=== PATIENT | male | born 1945 | race Caucasian/White ===

== ENCOUNTER 2019-11-02 09:50 | Emergency (ER) | payer OTHER ==
[~2019-11-02] VITALS: Ht 172.7 cm; Wt 83.0 kg
[2019-11-02] MEDS ORDERED: ATORVASTATIN CA20 MG PO (13:39)
[2019-11-02] MEDS ORDERED: AMLODIPINE BESY10 MG PO (13:39)
[2019-11-02] MEDS ORDERED: SODBIC650 PO (13:39)
[2019-11-02] MEDS ORDERED: SPIRONOLACTONE25 MG PO (13:39)
[2019-11-02] MEDS ORDERED: GLIP10ER PO (13:39)
[2019-11-02] MEDS ORDERED: GABA300 PO (13:40)
[2019-11-02] MEDS ORDERED: SYNTHROID25 MCG PO (13:40)
== END 2019-11-02 14:45 | disposition home or self-care (01) ==
LOC: ER 09:50
DX: M43.8X6 Other specified deforming dorsopathies, lumbar region (principal); Z88.8 Allergy status to other drugs, medicaments and biological substances; W01.0XXA Fall on same level from slipping, tripping and stumbling without subsequent striking against object, initial encounter
CPT/HCPCS: 72100; 99284-25

== ENCOUNTER 2019-12-21 11:17 | Inpatient (IN) | payer OTHER ==
[~2019-12-21] VITALS: Ht 170.2 cm; Wt 79.5 kg
[~2019-12-21 11:17] MED LIST: AMLODIPINE BESY10 MG PO; ATORVASTATIN CA20 MG PO; GABA300 PO; GLIP10ER PO; SODBIC650 PO; SPIRONOLACTONE25 MG PO; SYNTHROID25 MCG PO
[2019-12-21 13:02] LABS: BASOPHILS ABSOLUTE AUTO 0.04 K/mm3 (0.00-0.23); BASOPHILS PERCENT AUTO 0 % (0-2); EOSINOPHILS ABSOLUTE AUTO 0.17 K/mm3 (0.00-0.68); EOSINOPHILS PERCENT AUTO 1 % (0-6); Hemoglobin 10.8 g/dL (13.5-17.5); IMMATURE GRAN ABSOLUTE AUTO 0.08 K/mm3 (0.00-0.10); IMMATURE GRAN PERCENT AUTO 1 % (0-1); LYMPHOCYTES ABSOLUTE AUTO 0.39 K/mm3 (0.84-5.20); LYMPHOCYTES PERCENT AUTO 3 % (21-46); MONOCYTES ABSOLUTE AUTO 0.89 K/mm3 (0.16-1.47); MONOCYTES PERCENT AUTO 6 % (4-13); Mean Corpuscular HGB Conc 32.7 g/dL (31.5-36.5); Mean Corpuscular Volume 92 fL (80-100); Mean Platelet Volume 11.6 fL (9.1-12.4); NEUTROPHILS ABSOLUTE AUTO 14.19 K/mm3 (1.96-9.15); NEUTROPHILS PERCENT AUTO 90 % (41-73); Platelet Count 266 K/mm3 (150-400); RDW Coefficient Variation 12.7 % (11.7-14.2); RDW Standard Deviation 42.5 fL (35.1-46.3); White Blood Cell Count 15.76 K/mm3 (4.00-11.30)
[2019-12-21 13:20] LABS: Albumin, Blood 2.5 g/dL (3.4-5.0); Albumin/Globulin Ratio 0.6 (0.8-1.8); Bilirubin, Total 0.5 mg/dL (0.1-1.0); Bun/Creatinine Ratio 10.5 (12.0-20.0); Calcium, Blood 7.9 mg/dL (8.5-10.1); Creatinine, Blood 5.99 mg/dL (0.60-1.20); Globulin, Blood 4.4 g/dL (2.2-4.0); Potassium, Blood 3.6 mmol/L (3.5-5.5); Total Protein, Blood 6.9 g/dL (6.4-8.2)
[2019-12-21 19:37] LABS: Appearance, Urine Hazy (Clear); Bilirubin, Urine Neg (Neg); Blood, Urine 3+ (Neg); Color, Urine Yellow (P-Yellow); Glucose Qualitative, Urine 2+ (Neg); Ketones, Urine Neg (Neg); Leukocyte Esterase, Urine Neg (Neg); Nitrite, Urine Neg (Neg); Protein, Urine 4+ (Neg); Urobilinogen, Urine NORM (Normal)
[2019-12-21 19:43] LABS: Amorphous Heavy (0-Heavy); Bacteria Few /hpf; Red Blood Cells, Urine 0-2 /hpf (0-2); Squamous Epithelial Cells Few /hpf (Few); White Blood Cells, Urine 0-2 /hpf (0-5)
--- NOTE | 2019-12-22 03:50 | NUR ---
SHIFT SUMMARY: PATIENT ARRIVED TO [facility] AT APPROX 2035 VIA GURNEY FROM ER. PATIENT SLIDE TRANSFER HE IS UNABLE TO AMBULATE AT THIS TIME D/T WEAKNESS. BED EXIT ALARM PLACED, ADMISSION COMPLETED AND PATIENT ORIENTED TO ROOM, CALL LIGHT AND HOSPITAL POLICIES. OPEN AREA NEAR COCCYX RECORDED AND MEPELEX PLACED, WATSON PATENT AND DRAINING TO GRAVITY. PATIENT ABLE TO SWALLOW, COMPLIANT WITH CARE. BED LOW AND LOCKED.
--- NOTE | 2019-12-22 07:25 | NUR ---
ASSUMED PATIENT CARE. PATIENT RESTING COMFORTABLY IN BED, NO SIGNS OF ACUTE DISTRESS. PATIENT ABLE TO SPEAK COMFORTABLY WITH NURSING STAFF. TM.
[2019-12-22 11:49] LABS: BASOPHILS ABSOLUTE AUTO 0.04 K/mm3 (0.00-0.23); BASOPHILS PERCENT AUTO 0 % (0-2); EOSINOPHILS ABSOLUTE AUTO 0.21 K/mm3 (0.00-0.68); EOSINOPHILS PERCENT AUTO 1 % (0-6); Hematocrit 30.7 % (37.0-53.0); Hemoglobin 9.9 g/dL (13.5-17.5); IMMATURE GRAN ABSOLUTE AUTO 0.11 K/mm3 (0.00-0.10); IMMATURE GRAN PERCENT AUTO 1 % (0-1); LYMPHOCYTES ABSOLUTE AUTO 0.53 K/mm3 (0.84-5.20); LYMPHOCYTES PERCENT AUTO 3 % (21-46); MONOCYTES ABSOLUTE AUTO 1.17 K/mm3 (0.16-1.47); MONOCYTES PERCENT AUTO 6 % (4-13); Mean Corpuscular HGB 29.6 pg (26.0-34.0); Mean Corpuscular HGB Conc 32.2 g/dL (31.5-36.5); Mean Corpuscular Volume 92 fL (80-100); Mean Platelet Volume 11.2 fL (9.1-12.4); NEUTROPHILS PERCENT AUTO 89 % (41-73); Platelet Count 279 K/mm3 (150-400); RDW Coefficient Variation 12.8 % (11.7-14.2); RDW Standard Deviation 42.5 fL (35.1-46.3); Red Blood Cell Count 3.35 M/mm3 (4.30-5.90); White Blood Cell Count 19.06 K/mm3 (4.00-11.30)
[2019-12-22 12:06] LABS: Albumin, Blood 2.3 g/dL (3.4-5.0); Anion Gap 9 mmol/L (6-16); Blood Urea Nitrogen 62 mg/dL (8-24); Bun/Creatinine Ratio 10.4 (12.0-20.0); CO2, Blood 20 mmol/L (21-32); Calcium, Blood 7.8 mg/dL (8.5-10.1); Chloride, Blood 105 mmol/L (98-108); Creatinine, Blood 5.97 mg/dL (0.60-1.20); Glomerular Filtration Rate 10 (60-); Glucose, Blood 155 mg/dL (70-99); Phosphorus, Blood 4.3 mg/dL (2.5-4.9); Potassium, Blood 3.4 mmol/L (3.5-5.5); Sodium, Blood 134 mmol/L (136-145)
--- NOTE | 2019-12-22 13:21 | NUR ---
Spiritual care visit conducted. Patient is sitting up in bed and alert. Patient tells me about his recent medical history, about his life at [facility] and about his family. He also expresses his interest in moving to [place] where his son lives. Patient explains his disappointment in the fact that he will most likely have to start dialysis. I listen empathically, normalize patient's experience and provide prayer. Patient responds well and thanks me for the visit. Patient asks if I could come visit him tomorrow. I tell him that I will make a point of it.
--- NOTE | 2019-12-22 19:40 | NUR ---
RELINQUISHED PATIENT CARE.
--- NOTE | 2019-12-22 19:50 | NUR ---
PATIENT REMAINED CONFUSED THIS SHIFT AND FORGETFUL OF EVENTS SUCH EATING MEALS. DRESSING ON COCCYX WAS CHANGED THIS SHIFT. USE OF CALL LIGHT REINFORCED. PATIENT ABLE TO TOLERATE PO MEDICATIONS WELL. PATIENT HAS PREVIOUSLY REFUSED DISCUSSIONS OF DIALYSIS, BUT IN CONVERSATION WITH DR. CARDOSO TODAY ENDORSED INTEREST IN PLANS FOR DIALYSIS. DR. CARDOSO SHARED HER PLANS TO DISCUSS POSSIBLE DIALYSIS, [facility] OR [facility], WITH POA AND ATTEMPTED TO CONTACT FAMILY TODAY.
[2019-12-22 21:42] LABS: Source, Urine Catheter
[2019-12-22 21:48] LABS: Appearance, Urine Clear (Clear); Bilirubin, Urine Neg (Neg); Blood, Urine 5+ (Neg); Color, Urine Yellow (P-Yellow); Glucose Qualitative, Urine 2+ (Neg); Ketones, Urine Neg (Neg); Leukocyte Esterase, Urine 1+ (Neg); Nitrite, Urine Neg (Neg); Protein, Urine 4+ (Neg); Specific Gravity, Urine 1.015 (1.003-1.022); Urobilinogen, Urine NORM (Normal)
[2019-12-22 21:54] LABS: Bacteria Mod /hpf; Squamous Epithelial Cells Few /hpf (Few)
[2019-12-22 21:55] LABS: Hyaline Casts 0-2 /lpf (0-2); WBC Cast 0-2 /lpf (0)
[2019-12-23 03:45] LABS: BASOPHILS ABSOLUTE AUTO 0.04 K/mm3 (0.00-0.23); BASOPHILS PERCENT AUTO 0 % (0-2); EOSINOPHILS ABSOLUTE AUTO 0.45 K/mm3 (0.00-0.68); EOSINOPHILS PERCENT AUTO 3 % (0-6); Hematocrit 30.6 % (37.0-53.0); Hemoglobin 9.7 g/dL (13.5-17.5); IMMATURE GRAN ABSOLUTE AUTO 0.06 K/mm3 (0.00-0.10); IMMATURE GRAN PERCENT AUTO 0 % (0-1); LYMPHOCYTES ABSOLUTE AUTO 0.71 K/mm3 (0.84-5.20); LYMPHOCYTES PERCENT AUTO 4 % (21-46); MONOCYTES ABSOLUTE AUTO 1.17 K/mm3 (0.16-1.47); MONOCYTES PERCENT AUTO 7 % (4-13); Mean Corpuscular HGB 29.5 pg (26.0-34.0); Mean Corpuscular HGB Conc 31.7 g/dL (31.5-36.5); Mean Corpuscular Volume 93 fL (80-100); Mean Platelet Volume 11.3 fL (9.1-12.4); NEUTROPHILS ABSOLUTE AUTO 13.82 K/mm3 (1.96-9.15); NEUTROPHILS PERCENT AUTO 85 % (41-73); Platelet Count 259 K/mm3 (150-400); RDW Coefficient Variation 12.8 % (11.7-14.2); RDW Standard Deviation 43.6 fL (35.1-46.3); Red Blood Cell Count 3.29 M/mm3 (4.30-5.90); White Blood Cell Count 16.25 K/mm3 (4.00-11.30)
[2019-12-23 04:06] LABS: Albumin, Blood 2.2 g/dL (3.4-5.0); Anion Gap 10 mmol/L (6-16); Blood Urea Nitrogen 66 mg/dL (8-24); Bun/Creatinine Ratio 10.7 (12.0-20.0); CO2, Blood 19 mmol/L (21-32); Calcium, Blood 7.9 mg/dL (8.5-10.1); Chloride, Blood 105 mmol/L (98-108); Creatinine, Blood 6.16 mg/dL (0.60-1.20); Glomerular Filtration Rate 9 (60-); Glucose, Blood 114 mg/dL (70-99); Phosphorus, Blood 4.2 mg/dL (2.5-4.9); Potassium, Blood 3.4 mmol/L (3.5-5.5); Sodium, Blood 134 mmol/L (136-145)
--- NOTE | 2019-12-23 07:22 | NUR ---
ASSUMED PATIENT CARE. PATIENT RESTING COMFORTABLY IN BED, CONVERSING WITH NURSING STAFF. NO SIGNS OF ACUTE DISTRESS, WCTM.
--- NOTE | 2019-12-23 07:33 | NUR ---
SHIFT SUMMARY PATIENT PLEASENTLY CONFUSED THROUGHOUT THE NIGHT AND EASILY REDIRECTABLE. PATIENT REORIENTED NEEDED THROUGHOUT THE NIGHT. PATIENT APPEARED TO NAP ON AND OFF LAST NIGHT. PATIENT TURNED Q2H. VITAL SIGNS CHARTED. BEDSIDE REPORT GIVEN TO ONCOMING RN.
--- NOTE | 2019-12-23 18:34 | NUR ---
NO ACUTE EVENTS THIS SHIFT. PATIENT ENDORSED TO DR. CARDOSO THAT HE IS OPEN TO DIALYSIS, PATIENT WAS TAKEN TO DIALYSIS FOR A "FIELD TRIP" TO LEARN MORE ABOUT THE PROCESS. WAS NOT ABLE TO FOCUS AND ENDORSE UNDERSTANDING. DR. CARDOSO IS IN CONTACT WITH PATIENT'S FOR CONSENT, DR. CARDOSO IS FAMILIAR WITH PATIENT AND SPOUSE ON AN OUTPATIENT BASIS. PLAN IS FOR PATIENT TO GO NPO AT MIDNIGHT FOR PERMACATH PLACEMENT TOMORROW. COCCYX WOUND DRESSING WAS CHANGED THIS SHIFT, DRESSING CHANGE TO HAPPEN EACH SHIFT.
[2019-12-24 04:01] LABS: BASOPHILS ABSOLUTE AUTO 0.04 K/mm3 (0.00-0.23); BASOPHILS PERCENT AUTO 0 % (0-2); EOSINOPHILS ABSOLUTE AUTO 0.74 K/mm3 (0.00-0.68); EOSINOPHILS PERCENT AUTO 5 % (0-6); Hematocrit 27.4 % (37.0-53.0); Hemoglobin 8.8 g/dL (13.5-17.5); IMMATURE GRAN ABSOLUTE AUTO 0.07 K/mm3 (0.00-0.10); IMMATURE GRAN PERCENT AUTO 1 % (0-1); LYMPHOCYTES ABSOLUTE AUTO 0.76 K/mm3 (0.84-5.20); LYMPHOCYTES PERCENT AUTO 5 % (21-46); MONOCYTES ABSOLUTE AUTO 1.09 K/mm3 (0.16-1.47); MONOCYTES PERCENT AUTO 8 % (4-13); Mean Corpuscular HGB 28.9 pg (26.0-34.0); Mean Corpuscular HGB Conc 32.1 g/dL (31.5-36.5); Mean Platelet Volume 11.1 fL (9.1-12.4); NEUTROPHILS ABSOLUTE AUTO 11.52 K/mm3 (1.96-9.15); NEUTROPHILS PERCENT AUTO 81 % (41-73); Platelet Count 276 K/mm3 (150-400); RDW Coefficient Variation 12.6 % (11.7-14.2); RDW Standard Deviation 41.5 fL (35.1-46.3); Red Blood Cell Count 3.04 M/mm3 (4.30-5.90); White Blood Cell Count 14.22 K/mm3 (4.00-11.30)
[2019-12-24 04:03] LABS: Mean Corpuscular Volume 90 fL (80-100)
[2019-12-24 04:22] LABS: Anion Gap 11 mmol/L (6-16); Blood Urea Nitrogen 70 mg/dL (8-24); Bun/Creatinine Ratio 11.6 (12.0-20.0); CO2, Blood 18 mmol/L (21-32); Calcium, Blood 7.5 mg/dL (8.5-10.1); Chloride, Blood 106 mmol/L (98-108); Creatinine, Blood 6.06 mg/dL (0.60-1.20); Glomerular Filtration Rate 10 (60-); Glucose, Blood 131 mg/dL (70-99); Phosphorus, Blood 4.2 mg/dL (2.5-4.9); Potassium, Blood 3.5 mmol/L (3.5-5.5); Sodium, Blood 135 mmol/L (136-145)
--- NOTE | 2019-12-24 06:50 | NUR ---
SHIFT SUMMARY PATIENT SLIGHTLY IRRITABLE THROUGHOUT THE NIGHT. PATIENT COMPLAINING ABOUT BEING IN PAIN AND YET WOULD REFUSE ALL PAIN MEDICATION. PATIENT EVENTUALLY DID ALLOW TYLENOL TO BE GIVEN X 2 FOR PAIN. PATIENT TURNED/REPOSITIONED WELL WARM BLANKETS PROVIDED FOR COMFORT. PATIENT APPEARED TO NAP ON AND OFF THROUGHOUT THE NIGHT BUT APPEARED TO GET SEVERAL HOURS OF UNINTERUPTED REST SEVERAL TIMES LAST NIGHT. PATIENT TURNED Q2H. WILL CONTINUE TO MONITOR PATIENT AND GIVE BEDSIDE REPORT TO ONCOMING RN.
--- NOTE | 2019-12-24 11:42 | NUR ---
PT OFF UNIT TO DAY SURGERY FOR PERMA CATH PLACEMENT AT [address] [facility].
--- NOTE | 2019-12-24 14:25 | NUR ---
RETURNED FROM PACU VIA GURNEY. ALERT, A BIT DROWSY, FOLLOWING COMMANDS. PERMA CATH SITE IN R UPPER CHEST COVERED BY GAUZE DRESSING, CD&I. ANOTHER GAUZE DRESS ON R NECK, CDI. PT DENIES PAIN, NAUSEA AT THIS TIME.
--- NOTE | 2019-12-24 15:02 | NUR ---
WOUND ASSESSMENT: COMPLEX COCCYX WOUND. THERE IS AN OPEN AREA MEASURING 3 X 5 X [place], PRESENCE OF SLOUGH IN THE WOUND BED. SURROUNDING AREA OF NON BLANCHABLE ERYTHEMA MEASURES 10.5 X 9 X 0. EDEMA PRESENT THROUGHOUT THE WOUND BED. MODERATE AMT DRAINAGE ON DRESSING IS SEROUS/PURULENT AND MALODOROUS. WOUND CULTURE OBTAINED AND SENT. WOUND CLEANED WITH WOUND CLEANSER, PATTED DRY. PLACED CA ALGINATE IN WOUND BED TO ABSORB DRAINAGE, COVERED WITH MEPILEX FOAM ADHESIVE DRESSING. TOLERATED WOUND CARE WELL. RREPOSITIONED TO R SIDE.
--- NOTE | 2019-12-24 18:49 | NUR ---
SHIFT SUMMARY: VSS AFTER PERMACATH PLACEMENT. SLEEPING AT THIS TIME. SPOKE TO PT'S , ASSURED HER THAT HE IS DOING FINE. ADEQUATE URINE OUTPUT FROM WATSON. FLOATED HIM ON BILATERAL PILLOWS TO OFF LOAD PRESSURE FROM COCCYX WOUND. RESP EVEN AND UNLABORED. R UPPER CHEST PERMACATH DRESSING AND R NECK ARE CD&I. PLAN IS DIALYSIS TOMORROW.
--- NOTE | 2019-12-24 20:40 | NUR ---
INITIAL ASSESSMENT PATIENT RESTING QUIETLY IN BED, WATCHING TV UPON ENTERING ROOM. PATIENT ALERT AND ORIENTED TO SELF, YEAR, MONTH, PERSON, AND FOLLOWING COMMANDS. PATIENT WEAK. PATIENT AFEBRILE. NO COMPLAINTS OF PAIN. PATIENT SATTING 90% AND GREATER ON RA. LUNGS CLEAR IN UPPER LOBES, CRACKLES IN LLL, RLL DIMINISHED. PATIENT IN SR WITH BBB, HR IN THE 60S. BP STABLE. SCDS IN PLACE. GI WNL. WATSON IN PLACE, DRAINING LIGHT YELLOW COLORED URINE. WOUND TO COCCYX/ SACRUM- MEPILEX IN PLACE- C/D/I. NEW PERMACATH TO R UPPER CHEST- APPEARS WNL. IV FLUSHED AND SALINE LOCKED. BED LOW, CALL LIGHT IN REACH, BED ALARM ON. WILL CONTINUE TO MONITOR PATIENT FREQUENTLY THROUGHOUT SHIFT.
--- NOTE | 2019-12-25 00:42 | NUR ---
PATIENT SLEEPING SOUNDLY UPON ENTERING ROOM. PATIENT HAS NO COMPLAINTS OF PAIN. AFEBRILE. HR IN THE 60S. BP STABLE. NO ACUTE CHANGES TO NOTE ON AT THIS TIME. WILL CONTINUE TO MONITOR.
--- NOTE | 2019-12-25 04:29 | NUR ---
PATIENT RESTING QUIETLY, WATCHING TV UPON ENTERING ROOM. PATIENT DENIES PAIN. PATIENT AFEBRILE. PATIENT REMAINS SATTING 90% AND GREATER ON RA. PATIENT IN SB WITH BBB, HR IN THE 50S. SBP IN THE 150S. NO OTHER ACUTE CHANGES TO NOTE ON AT THIS TIME. WILL CONTINUE TO MONITOR.
[2019-12-25 04:49] LABS: Albumin, Blood 2.1 g/dL (3.4-5.0); Anion Gap 10 mmol/L (6-16); Blood Urea Nitrogen 75 mg/dL (8-24); CO2, Blood 19 mmol/L (21-32); Calcium, Blood 7.9 mg/dL (8.5-10.1); Chloride, Blood 105 mmol/L (98-108); Creatinine, Blood 6.23 mg/dL (0.60-1.20); Glomerular Filtration Rate 9 (60-); Glucose, Blood 197 mg/dL (70-99); Phosphorus, Blood 5.7 mg/dL (2.5-4.9); Potassium, Blood 4.4 mmol/L (3.5-5.5); Sodium, Blood 134 mmol/L (136-145)
--- NOTE | 2019-12-25 06:38 | NUR ---
SHIFT SUMMARY PATIENT REMAINED ALERT AND ORIENTED TO SELF, PLACE, YEAR, AND FOLLOWING DIRECTIONS. PATIENT REMAINED AFEBRILE. PATIENT HAD NO COMPLAINTS OF PAIN. PATIENT REMAINED WEAK BUT ABLE TO MOVE ALL EXTREMITIES AND ASSIST WITH TURNS. PATIENT REMAINED SATTING 90% AND GREATER ON RA. PATIENT REMAINED IN SB TO SR WITH BBB. HR 40S TO 60S. BP REMAINED STABLE. SCDS IN PLACE. GI WNL. NO BM THIS SHIFT. WATSON DRAINED ADEQUATE AMOUNT OF LIGHT YELLOW COLORED URINE. NO CHANGE IN SKIN. PATIENT REPOSITIONED THROUGHOUT SHIFT. PERMACATH REMAINS WNL. BUN, CREATININE AND PHOS LEVELS INCREASED THIS AM. GFR DECREASED. NO COMPLAINTS AT THIS TIME. BED LOW, CALL LIGHT IN REACH. [facility].
--- NOTE | 2019-12-25 07:28 | NUR ---
ASSUMED CARE: PT RESTING IN BED AT THIS TIME. TALKING TO STAFF. NO ACUTE NEEDS OR CONCERNS NOTED AT THIS TIME.
--- NOTE | 2019-12-25 10:44 | NUR ---
PT'S TERRANCE CALLED TO CHECK IN. NAME WAS NOT ON VERBAL CONSENT FORM. BECAME UPSET AND REQUESTED TO SPEAK WITH MIXING MACHINE ATTENDANT. MIXING MACHINE ATTENDANT STATES IS OK TO SPEAK TO, GAVE CONSENT FOR PROCEDURE YESTERDAY. REQUESTS PT'S DAUGHTER LEWIS TO NOT GET INFORMATION BUT IS ALREADY ON CONSENT FORM. DISCUSSED WITH MIXING MACHINE ATTENDANT WHO STATES TO LEAVE CONSENT FORM DUE TO PT'S SIGNATURE BEING ON IT AND TO ASK IF 'S NAME CAN BE ADDED TO IT. PT CURRENTLY IN DIALYSIS AT THIS TIME.
--- NOTE | 2019-12-25 15:43 | NUR ---
DR PANCHAL'S NOTE STATES MRSA IN WOUND. CALLED DR PANCHAL TO ASK IF ANTIBIOTICS SHOULD BE ORDERED. DR STATED HE WOULD REVIEW.
--- NOTE | 2019-12-25 18:02 | NUR ---
SHIFT SUMMARY: PT SITTING IN BED WORKING ON DINNER. PLEASANT AND COOPERATIVE. CONFUSED AT TIMES. GIVEN UPDATE AND ADDED TO HIPAA FORM PER PT'S REQUEST. RECIEVED DIALYSIS TODAY. AWAITING INPUT FROM SOCIAL WORK TO DETERMINE IF PT NEEDS SNF OR CAN GO BACK TO [place]. NO FURTHER NEEDS OR CONCERNS AT THIS TIME.
--- NOTE | 2019-12-25 20:34 | NUR ---
PT RESTING IN BED. A/O TO PERSON, PLACE, AND PRESIDENT. OFF ON THE DATE BY 5 DAYS. A LITTLE FORGETFUL AT TIMES BUT UNDERSTANDS PROCEDURES AND HOSPITAL ROUTINES. HAS DECUB WOUND TO COCCYX THAT HAS MEPILEX DRESSING. HAD TO ENCOURAGE PT TO REPOSITION. NO SIGN OF DISTRESS. CALL LIGHT IN REACH.
--- NOTE | 2019-12-25 21:06 | NUR ---
GAVE REPORT TO IAM BECKWITH WHO WILL ASSUME CARE OF PT
--- NOTE | 2019-12-26 04:09 | NUR ---
SHIFT SUMMARY: PATIENT DID WELL THIS SHIFT, CALLING APPROPRIATLY, VSS, NO ISSUES NOTED. BED LOW AND LOCKED WITH CALL LIGHT WITHIN REACH.
[2019-12-26 05:45] LABS: BASOPHILS ABSOLUTE AUTO 0.03 K/mm3 (0.00-0.23); BASOPHILS PERCENT AUTO 0 % (0-2); EOSINOPHILS ABSOLUTE AUTO 0.17 K/mm3 (0.00-0.68); EOSINOPHILS PERCENT AUTO 1 % (0-6); Hematocrit 28.1 % (37.0-53.0); Hemoglobin 9.2 g/dL (13.5-17.5); IMMATURE GRAN ABSOLUTE AUTO 0.25 K/mm3 (0.00-0.10); IMMATURE GRAN PERCENT AUTO 2 % (0-1); LYMPHOCYTES ABSOLUTE AUTO 1.15 K/mm3 (0.84-5.20); LYMPHOCYTES PERCENT AUTO 7 % (21-46); MONOCYTES ABSOLUTE AUTO 1.34 K/mm3 (0.16-1.47); MONOCYTES PERCENT AUTO 8 % (4-13); Mean Corpuscular HGB 29.2 pg (26.0-34.0); Mean Corpuscular HGB Conc 32.7 g/dL (31.5-36.5); Mean Corpuscular Volume 89 fL (80-100); Mean Platelet Volume 11.3 fL (9.1-12.4); NEUTROPHILS PERCENT AUTO 82 % (41-73); Platelet Count 352 K/mm3 (150-400); RDW Coefficient Variation 12.4 % (11.7-14.2); RDW Standard Deviation 40.4 fL (35.1-46.3); Red Blood Cell Count 3.15 M/mm3 (4.30-5.90); White Blood Cell Count 16.54 K/mm3 (4.00-11.30)
--- NOTE | 2019-12-26 07:30 | NUR ---
ASSUMED CARE: PT RESTING QUIETLY AT THIS TIME. NO ACUTE NEEDS OR DISTRESS NOTED.
[2019-12-26 08:58] LABS: Albumin, Blood 2.3 g/dL (3.4-5.0); Anion Gap 6 mmol/L (6-16); Blood Urea Nitrogen 53 mg/dL (8-24); Bun/Creatinine Ratio 11.7 (12.0-20.0); CO2, Blood 27 mmol/L (21-32); Calcium, Blood 7.8 mg/dL (8.5-10.1); Chloride, Blood 103 mmol/L (98-108); Creatinine, Blood 4.53 mg/dL (0.60-1.20); Glomerular Filtration Rate 14 (60-); Glucose, Blood 123 mg/dL (70-99); Phosphorus, Blood 2.9 mg/dL (2.5-4.9); Potassium, Blood 3.4 mmol/L (3.5-5.5); Sodium, Blood 136 mmol/L (136-145)
--- NOTE | 2019-12-26 10:30 | NUR ---
DR PANCHAL MADE AWARE OF PT'S LOW POTASSIUM THIS AM. WOUND CARE DONE WITH NEW PICTURE TAKEN AND ADDED TO THE CHART.
--- NOTE | 2019-12-26 18:02 | NUR ---
SHIFT SUMMARY: MEDICAL STATUS AT THIS TIME. RESTING IN BED, DIALYSIS RECIEVED TODAY. PLEASANT AND COOPERATIVE. NO ACUTE NEEDS OR CONCERNS THIS SHIFT.
[2019-12-27 05:09] LABS: BASOPHILS ABSOLUTE AUTO 0.04 K/mm3 (0.00-0.23); BASOPHILS PERCENT AUTO 0 % (0-2); EOSINOPHILS ABSOLUTE AUTO 0.45 K/mm3 (0.00-0.68); EOSINOPHILS PERCENT AUTO 4 % (0-6); Hematocrit 28.2 % (37.0-53.0); Hemoglobin 9.1 g/dL (13.5-17.5); IMMATURE GRAN ABSOLUTE AUTO 0.34 K/mm3 (0.00-0.10); IMMATURE GRAN PERCENT AUTO 3 % (0-1); LYMPHOCYTES ABSOLUTE AUTO 1.35 K/mm3 (0.84-5.20); LYMPHOCYTES PERCENT AUTO 11 % (21-46); MONOCYTES ABSOLUTE AUTO 1.09 K/mm3 (0.16-1.47); MONOCYTES PERCENT AUTO 9 % (4-13); Mean Corpuscular HGB 29.2 pg (26.0-34.0); Mean Corpuscular HGB Conc 32.3 g/dL (31.5-36.5); Mean Corpuscular Volume 90 fL (80-100); Mean Platelet Volume 10.8 fL (9.1-12.4); NEUTROPHILS ABSOLUTE AUTO 9.21 K/mm3 (1.96-9.15); NEUTROPHILS PERCENT AUTO 74 % (41-73); Platelet Count 334 K/mm3 (150-400); RDW Coefficient Variation 12.5 % (11.7-14.2); RDW Standard Deviation 41.1 fL (35.1-46.3); Red Blood Cell Count 3.12 M/mm3 (4.30-5.90); White Blood Cell Count 12.48 K/mm3 (4.00-11.30)
[2019-12-27 05:43] LABS: Albumin, Blood 2.1 g/dL (3.4-5.0); Anion Gap 7 mmol/L (6-16); Blood Urea Nitrogen 33 mg/dL (8-24); Bun/Creatinine Ratio 9.6 (12.0-20.0); CO2, Blood 30 mmol/L (21-32); Calcium, Blood 7.5 mg/dL (8.5-10.1); Chloride, Blood 100 mmol/L (98-108); Creatinine, Blood 3.44 mg/dL (0.60-1.20); Glomerular Filtration Rate 19 (60-); Glucose, Blood 122 mg/dL (70-99); Phosphorus, Blood 2.7 mg/dL (2.5-4.9); Potassium, Blood 3.5 mmol/L (3.5-5.5); Sodium, Blood 137 mmol/L (136-145)
--- NOTE | 2019-12-27 06:45 | NUR ---
SHIFT SUMMARY NO ACUTE CHANGES NOTED THROUGH THE NIGHT. PT REMAINS CONFUSED BUT COOPERATIVE. BED ALARM IS ON FOR SAFETY. Q2 TURNS PROVIDED. DRSG TO COCCYX WOUND WAS CHANGED, ABX OINTMENT APPLIED.PT C/O PAIN BUT REFUSES PAIN MEDICATION WHEN OFFERED, HE EXPRESSED INTEREST IN PHYSICAL THERAPY. CALL LIGHT IN REACH
--- NOTE | 2019-12-27 07:22 | NUR ---
ASSUMED CARE: PT RESTING QUIETLY AT THIS TIME. NO ACUTE NEEDS OR CONCERNS AT THIS TIME.
--- NOTE | 2019-12-27 18:15 | NUR ---
TRANSFERRED CARE TO [facility]. REPORT GIVEN AND PT TRANSFERRED VIA BED BY HOSPITAL STAFF.
--- NOTE | 2019-12-27 18:15 | NUR ---
recvd report from [facility]PER[facility] Alfredo. pt transferred to unit on bed, a/o x 4, pleasant/cooperative, denies pain, Lungs are clear, has had dinner. VSS, telemetry NSR BBB occasional PVC at 62. Oriented pt to room. Bed in lowest position, bed rails up x 2, call light within reach.
--- NOTE | 2019-12-28 04:22 | NUR ---
SHIFT SUMMARY AA0X4, BP ELEVATED DURING LAST SHIFT. PRN BP MEDS GIVEN PER EMAR. DENIED PAIN DURING SHIFT. REPOSITIONED TWICE PT ALLOWED. SPENT TIME EDUCATING PT ON IMPORTANCE OF ALLOWING REPOSITIONING FOR HIS PRESSURE ULCER. WATSON PATENT AND DRAINING LARGE AMOUNT CLEAR YELLOW URINE.
[2019-12-28 05:06] LABS: BASOPHILS ABSOLUTE AUTO 0.05 K/mm3 (0.00-0.23); BASOPHILS PERCENT AUTO 0 % (0-2); EOSINOPHILS ABSOLUTE AUTO 0.65 K/mm3 (0.00-0.68); EOSINOPHILS PERCENT AUTO 5 % (0-6); Hemoglobin 9.6 g/dL (13.5-17.5); IMMATURE GRAN ABSOLUTE AUTO 0.66 K/mm3 (0.00-0.10); IMMATURE GRAN PERCENT AUTO 5 % (0-1); LYMPHOCYTES ABSOLUTE AUTO 1.82 K/mm3 (0.84-5.20); LYMPHOCYTES PERCENT AUTO 14 % (21-46); MONOCYTES ABSOLUTE AUTO 0.91 K/mm3 (0.16-1.47); MONOCYTES PERCENT AUTO 7 % (4-13); Mean Corpuscular HGB 30.1 pg (26.0-34.0); Mean Corpuscular HGB Conc 33.1 g/dL (31.5-36.5); Mean Corpuscular Volume 91 fL (80-100); Mean Platelet Volume 10.7 fL (9.1-12.4); NEUTROPHILS ABSOLUTE AUTO 9.33 K/mm3 (1.96-9.15); NEUTROPHILS PERCENT AUTO 70 % (41-73); NRBC ABSOLUTE 0.02 K/mm3 (0.00-0.02); NRBC Auto 0.1 /100 WBC (0.0-0.2); Platelet Count 325 K/mm3 (150-400); RDW Coefficient Variation 12.3 % (11.7-14.2); RDW Standard Deviation 41.1 fL (35.1-46.3); Red Blood Cell Count 3.19 M/mm3 (4.30-5.90); White Blood Cell Count 13.42 K/mm3 (4.00-11.30)
[2019-12-28 05:24] LABS: Alanine Aminotransfer (ALT/SGP 20 U/L (12-78); Albumin, Blood 2.1 g/dL (3.4-5.0); Albumin/Globulin Ratio 0.5 (0.8-1.8); Alk Phos 78 U/L (50-136); Anion Gap 5 mmol/L (6-16); Aspartate Aminotrans (AST/SGOT 30 U/L (12-37); Bilirubin, Total 0.4 mg/dL (0.1-1.0); Blood Urea Nitrogen 40 mg/dL (8-24); Bun/Creatinine Ratio 9.1 (12.0-20.0); CO2, Blood 30 mmol/L (21-32); Calcium, Blood 7.4 mg/dL (8.5-10.1); Chloride, Blood 102 mmol/L (98-108); Creatinine, Blood 4.41 mg/dL (0.60-1.20); Globulin, Blood 4.2 g/dL (2.2-4.0); Glomerular Filtration Rate 14 (60-); Glucose, Blood 129 mg/dL (70-99); Phosphorus, Blood 2.9 mg/dL (2.5-4.9); Potassium, Blood 3.7 mmol/L (3.5-5.5); Sodium, Blood 137 mmol/L (136-145); Total Protein, Blood 6.3 g/dL (6.4-8.2)
[2019-12-28 13:02] LABS: Vancomycin, Random 11.5 ug/mL
--- NOTE | 2019-12-28 13:22 | NUR ---
pt back from dialysis ate lunch. denies any needs at this time.
--- NOTE | 2019-12-28 17:11 | NUR ---
SUMMARY NO ACUTE CHANGES T/O SHIFT. PT REC'D DIALYSIS THIS AM. REPOSITIONED T/O DAY. PT ABLE TO TURN WELL IN BED. WORKED W/THERAPY. THERAPY REPORTED PT AMBULATED FROM BED TO CURTAIN IN ROOM BUT HAD DIFFICULTY AMBULATING BACK TO BED. THERPAIST RECOMMENDED TWO PERSON ASSIST. PT ALSO HAD DIFFICULTY MAINTAINING BALANCE WHEN SITTING ON EDGE OF BED. PT IRRITABLE AT TIMES. CALL LIGHT IN REACH.
--- NOTE | 2019-12-29 05:33 | NUR ---
SHIFT SUMMARY: PT NONSENSICAL, CONFUSED AND IRRITABLE AT TIMES. EASILY REASSURED. WATSON CATHETER DRAINING ADEQUATE AMOUNT OF CLEAR YELLOW URINE. PT HAD A BM THIS SHIFT WITH 2 PERSON ASSIST ATTENDS CHANGE. REPOSITIONED T/O SHIFT. MEPILEX TO LOWER BACK CDI. PT WITHOUT ANY COMPLAINTS AT THIS TIME AND APPEARS TO BE RESTING COMFORTABLY.
[2019-12-29 16:07] LABS: Vancomycin, Random 17.4 ug/mL
--- NOTE | 2019-12-29 17:04 | NUR ---
Spoke with Bedside RN Zoe and discussed case prior to Pt visit. Zoe reports concerns that Pt seems confused at times. Pt resting in bed upon arrival. He denies pain, SOB, and anxiety at this time. Pt is A&Ox2/3. Pt states he is in the hospital but is unsure of the name of the hospital. Pt can not verbalize reason for hospital stay. Pt does verbalize the current month and year correctly. Re-orientated Pt of name of hospital and reason for admission. Engaged in therapeutic, simple and easy to understand conversation regarding advanced care planning. Pt reports tolerating dialysis and has no concerns. Discussed the importance of routine conversations with PCP and specialist regarding his disease process and establishing multiple plans as the disease process takes it coarse. Pt's level of understanding is questionable. Discussed life sustaing measures with Pt. Educated Pt on risk factors and implications of life sustaining measures. Pt states he wants to stay alive for his . Pt expresses no other concerns at this time. Palliative Care will remain available.
--- NOTE | 2019-12-29 18:20 | NUR ---
SHIFT SUMMARY PT A&O WITH OCCASIONAL CONFUSSION, PT BECAME ANGRY DURING THIS SHIFT ABOUT DIALYSIS AND WANTING TO D/C WITH . PT WAS COOPERATIVE WITH CARE AND WAS IN CHAIR FOR LUNCH, PT INSISTED ON LAYING BACK IN BED SHORTLY AFTER BEING UP. PT HAS TOLORATED MEALS WELL TODAY AND RYAN ANY NAUSEA AND VOMITING. PT HAD PARTIAL BED BATH CHANGED AND MEPHILEX CHANGED THIS SHIFT. PT DENIED PAIN THIS SHIFT. PT WORKED WITH PT AND OT THIS SHIFT. PT RYAN PAIN DURING THIS SHIFT. PT HAS CALL LIGHT WI IN REACH AND WILL REPORT TO ONCOMING SHIFT.
--- NOTE | 2019-12-30 07:56 | NUR ---
SHIFT SUMMARY PT RESTED WELL T/O NIGHT. DENIES DISCOMFORT/NAUSEA/EMESIS THIS SHIFT. MEPILEX OVER COCCYX WOUND CHANGED LAST NIGHT POST LARGE BM. TURN Q2H ON SIDES. SIPS FLUIDS T/O NIGHT. WATSON IN PLACE WITH SMALL AMOUNT OF CLEAR YELLOW OUT. AWAITING LABS THIS AM. DIALYSIS ORDERED FOR TODAY. NO ACUTE CHANGES OVER NIGHT. CALL LIGHT WITHIN REACH.
[2019-12-30 08:33] LABS: BASOPHILS ABSOLUTE AUTO 0.05 K/mm3 (0.00-0.23); BASOPHILS PERCENT AUTO 0 % (0-2); EOSINOPHILS ABSOLUTE AUTO 0.55 K/mm3 (0.00-0.68); EOSINOPHILS PERCENT AUTO 4 % (0-6); Hemoglobin 9.1 g/dL (13.5-17.5); IMMATURE GRAN ABSOLUTE AUTO 0.61 K/mm3 (0.00-0.10); IMMATURE GRAN PERCENT AUTO 5 % (0-1); LYMPHOCYTES PERCENT AUTO 15 % (21-46); MONOCYTES ABSOLUTE AUTO 0.94 K/mm3 (0.16-1.47); MONOCYTES PERCENT AUTO 7 % (4-13); Mean Corpuscular HGB Conc 31.4 g/dL (31.5-36.5); Mean Corpuscular Volume 92 fL (80-100); Mean Platelet Volume 10.8 fL (9.1-12.4); NEUTROPHILS ABSOLUTE AUTO 9.46 K/mm3 (1.96-9.15); NEUTROPHILS PERCENT AUTO 70 % (41-73); Platelet Count 316 K/mm3 (150-400); RDW Coefficient Variation 12.7 % (11.7-14.2); RDW Standard Deviation 42.5 fL (35.1-46.3); Red Blood Cell Count 3.14 M/mm3 (4.30-5.90); White Blood Cell Count 13.61 K/mm3 (4.00-11.30)
[2019-12-30 08:55] LABS: Albumin, Blood 2.3 g/dL (3.4-5.0); Albumin/Globulin Ratio 0.6 (0.8-1.8); Bilirubin, Total 0.5 mg/dL (0.1-1.0); Bun/Creatinine Ratio 7.4 (12.0-20.0); Calcium, Blood 7.7 mg/dL (8.5-10.1); Creatinine, Blood 4.58 mg/dL (0.60-1.20); Potassium, Blood 4.1 mmol/L (3.5-5.5); Total Protein, Blood 6.3 g/dL (6.4-8.2)
[2019-12-30 12:00] LABS: Vancomycin, Random 11.3 ug/mL
--- NOTE | 2019-12-30 18:26 | NUR ---
SHIFT SUMMARY PATIENT STATES HE IS 'WORN OUT' AFTER DIALYSIS TODAY. TOOK SEVERAL CALLS FROM FAMILY TODAY WHO WISHED HIM HAPPY BIRTHDAY. PATIENT EXPRESSED SADNESS RE: BEING HOSPITALIZED, DIALYSIS. APPETITIE GOOD. DENIES PAIN. REPOSITIONED Q 2 HRS. NO ACUTE CHANGES OR C/O.
--- NOTE | 2019-12-31 06:11 | NUR ---
SHIFT SUMMARY RADHA RESTED FOR THE MAJORITY OF THE SHIFT. PRIOR TO FALLING ASLEEP, HE MADE REPETETIVE DESPONDENT STATEMENTS. HE ALSO STATED THAT HE FELT "AWFUL". HE DID HAVE DIALYSIS AND WAS REMINDED THAT IT IS NOT UNUSUAL TO FEEL POORLY FOR A SHOFT TIME AFTER UNDERGOING DIALYSIS. HE MOVES HIMSELF IN BED WELL, ABLE TO ROLL TO BOTH SIDES UNASSISTED. HE IS A 2 PERSON TRANSFER. WATSON IN PLACE DRAINING CLEAR, YELLOW URINE. HE IS ABLE TO MAKE HIS NEEDS KNOWN. VSS. NO ACUTE EVENTS OVERNIGHT. WILL REPORT TO DAY SHIFT RN.
--- NOTE | 2019-12-31 09:38 | NUR ---
PATIENT SMILING AND IMPROVED MOOD THIS AM. DR BRAVO IN TO SEE.
--- NOTE | 2019-12-31 11:57 | NUR ---
Spiritual care visit attempted. After receiving a referral for spiritual care, I visit patient. I introduce myself and the department I am from and patient states that he is not interested and " I belong to the [employer] and know more than you ever will!" I will continue to remain available to patient and family.
[2019-12-31 12:41] LABS: HBSAG SCREEN Negative (Negative); HEP A AB, IGM Negative (Negative); HEP B CORE AB, IGM Negative (Negative); HEP C VIRUS AB <0.1 (0.0-0.9)
[2019-12-31 15:21] LABS: Vancomycin, Random 17.6 ug/mL
--- NOTE | 2019-12-31 19:47 | NUR ---
SHIFT SUMMARY PATIENT MORE CHEERFUL TODAY. AGREEABLE UP TO CHAIR, WORK WITH PT/OT, SAT TO SIDE OF BED FOR DINNER. APPETITE GOOD. DENIES PAIN, NAUSEA. TOOK MANY PHONE CALLS FROM FAMILY. PLAN FOR POSSIBLE D/C TOMORROW TO SN AFTER DIALYSIS.
--- NOTE | 2020-01-01 06:50 | NUR ---
SUMMARY PT INTERMITTENTLY COOPERATIVE WITH REPOSITIONING TONIGHT.MEPILEX CHANGED TO SACRAL AREA AFTER CLEANSING THIS AM.NO OTHER ACUTE CHANGES.
[2020-01-01 10:58] LABS: Vancomycin, Random 15.5 ug/mL
[2020-01-01 12:13] LABS: Albumin, Blood 2.3 g/dL (3.4-5.0); Anion Gap 7 mmol/L (6-16); Blood Urea Nitrogen 32 mg/dL (8-24); Bun/Creatinine Ratio 6.4 (12.0-20.0); CO2, Blood 28 mmol/L (21-32); Calcium, Blood 7.6 mg/dL (8.5-10.1); Chloride, Blood 102 mmol/L (98-108); Creatinine, Blood 4.98 mg/dL (0.60-1.20); Glomerular Filtration Rate 12 (60-); Glucose, Blood 153 mg/dL (70-99); Phosphorus, Blood 3.3 mg/dL (2.5-4.9); Potassium, Blood 3.6 mmol/L (3.5-5.5); Sodium, Blood 137 mmol/L (136-145)
--- NOTE | 2020-01-01 15:03 | NUR ---
PT BACK FROM DIALYSIS AT ABOUT 1245
--- NOTE | 2020-01-01 15:04 | NUR ---
REPORT GIVEN TO TANG RAYA AT [facility] AT THIS TIME.
--- NOTE | 2020-01-01 15:15 | NUR ---
DISCHARGE: PT LEFT UNIT WITH [facility] TRANSPORT AT THIS TIME. PACKET SENT WITH PT
--- NOTE | 2020-01-01 15:21 | NUR ---
PICC LINE DRESSING CHANGED BEFORE DC AND WALTER ALSO DC'D. MEPILEX DRESSING AT COCCYX CHANGED. NATALIA RN MADE AWARE OF THIS AND PT PLAN FOR SCHEDULED FRIDAY, FRIDAY, FRIDAY DIALYSIS.
== END 2020-01-01 14:30 | DRG 673 ==
LOC: ER 11:17 → ERHOLD 17:56 → PCU 17:56 → SURS 17:56 → PCU 20:36 → SURS 12-27 18:13
PROVIDERS: Emergency Medicine; Hospitalist; Internal Medicine; Internal Medicine Endocrinology, Diabetes & Metabolism; Pharmacist; Surgery; ADMIT Internal Medicine
PROC: 02HV33Z Insertion of Infusion Device into Superior Vena Cava, Percutaneous Approach (ICD-10-PCS; 2019-12-24)
PROC: 5A1D70Z Performance of Urinary Filtration, Intermittent, Less than 6 Hours Per Day (ICD-10-PCS; 2019-12-24)
PROC: 0JH63XZ Insertion of Tunneled Vascular Access Device into Chest Subcutaneous Tissue and Fascia, Percutaneous Approach (ICD-10-PCS; principal; 2019-12-24 11:00)
PROC: 5A1D70Z Performance of Urinary Filtration, Intermittent, Less than 6 Hours Per Day (ICD-10-PCS; 2019-12-26)
PROC: 5A1D70Z Performance of Urinary Filtration, Intermittent, Less than 6 Hours Per Day (ICD-10-PCS; 2019-12-28)
PROC: 5A1D70Z Performance of Urinary Filtration, Intermittent, Less than 6 Hours Per Day (ICD-10-PCS; 2019-12-30)
PROC: 5A1D70Z Performance of Urinary Filtration, Intermittent, Less than 6 Hours Per Day (ICD-10-PCS; 2020-01-01)
DX: I12.0 Hypertensive chronic kidney disease with stage 5 chronic kidney disease or end stage renal disease (principal); N18.6 End stage renal disease; L89.153 Pressure ulcer of sacral region, stage 3; E11.22 Type 2 diabetes mellitus with diabetic chronic kidney disease; D63.1 Anemia in chronic kidney disease; R53.81 Other malaise; E78.5 Hyperlipidemia, unspecified; E03.9 Hypothyroidism, unspecified; Z86.73 Personal history of transient ischemic attack (TIA), and cerebral infarction without residual deficits; I45.10 Unspecified right bundle-branch block; E87.6 Hypokalemia; H91.90 Unspecified hearing loss, unspecified ear
CPT/HCPCS: 36415; 36569; 51702; 71046; 72100; 77001; 80053; 80069; 80074; 80202; 81001; 82947; 83735; 84100; 85018; 85025; 85651; 86140; 86317; 87040; 87070; 87075; 87077; 87086; 87147; 87186; 87205; 90670; 93005; 93010; 96361; 96374; 97110; 97116; 97162; 97166; 97530; 97535; 99285-25; A9270; A9270-GY; C1750; C1751; C9113; J0360; J0690; J0881; J1100; J1644; J2405; J2704; J3370; J7030; J7050

== ENCOUNTER 2020-01-24 06:56 | Day surgery (SDC) | payer OTHER ==
[~2020-01-24] VITALS: Ht 172.7 cm; Wt 81.8 kg
[2020-01-24] MEDS ORDERED: TRAZ50 PO (08:04)
[2020-01-24] MEDS ORDERED: PANT20 PO (08:05)
== END 2020-01-24 11:30 | disposition home or self-care (01) ==
LOC: ORSCMMR 06:56 → ORD 08:30 → ORSCMMR 08:30
PROVIDERS: Surgery
PROC: 05HN33Z Insertion of Infusion Device into Left Internal Jugular Vein, Percutaneous Approach (ICD-10-PCS; principal; 2020-01-24 08:30)
PROC: 05PYX3Z Removal of Infusion Device from Upper Vein, External Approach (ICD-10-PCS; principal; 2020-01-24 08:30)
PROC: B5141ZA Fluoroscopy of Left Jugular Veins using Low Osmolar Contrast, Guidance (ICD-10-PCS; principal; 2020-01-24 08:30)
DX: T82.41XA Breakdown (mechanical) of vascular dialysis catheter, initial encounter (principal); E11.22 Type 2 diabetes mellitus with diabetic chronic kidney disease; I12.0 Hypertensive chronic kidney disease with stage 5 chronic kidney disease or end stage renal disease; N18.6 End stage renal disease; E03.9 Hypothyroidism, unspecified; E78.5 Hyperlipidemia, unspecified; Z86.73 Personal history of transient ischemic attack (TIA), and cerebral infarction without residual deficits; Z79.899 Other long term (current) drug therapy
CPT/HCPCS: 77001; 82435; 82947; 84132; 84295; C1752; J0690; J1100; J1644; J2370; J2405; J2704; J3010; J7030

== ENCOUNTER 2020-02-04 05:38 | Day surgery (SDC) | payer OTHER ==
[~2020-02-04] VITALS: Ht 172.7 cm; Wt 77.2 kg
[~2020-02-04 05:38] MED LIST changes: +PANT20 PO; +TRAZ50 PO
[2020-02-04] MEDS ORDERED: Vitamin D2000 UNIT PO (07:02)
[2020-02-04] MEDS ORDERED: HYDR10 (07:03)
[2020-02-04] MEDS ORDERED: HYDRA25 (07:03)
--- NOTE | 2020-02-04 10:48 | NUR ---
RIGHT SIDED PERMACATH PLACEMENT APPEARS TO BE WNL, DRESSING INTACT, RED CLOTH DOT DRESSING ALSO IN PLACE. PT IV REMOVED FROM RFA WITH CATH INTACT, PRESSURE DRESSING APPLIED. TRANSPORTATION ARRIVED TO GET PT A RIDE TO [facility] FOR DIAYLISIS, VSS. ATTEMPTED TO CALL NATALIA TO GIVE REPORT TO RN AT FACILITY, UNABLE TO SPEAK WITH SOMEONE, MESSAGE LEFT BY THIS RN WITH CONSUMER RECRUITER, THIS RN NAME AND CALL BACK NUMBER PROVIDED. PT TAKEN OUT TO TRANSPORT VAN IN PERSONAL W/C. NADN AT TIME OF DISCHARGE, PAPERWORK PROVIDED IN FOLDER.
== END 2020-02-04 12:10 | disposition home or self-care (01) ==
LOC: MHTC 05:38
DX: T82.41XA Breakdown (mechanical) of vascular dialysis catheter, initial encounter (principal); E11.22 Type 2 diabetes mellitus with diabetic chronic kidney disease; I12.0 Hypertensive chronic kidney disease with stage 5 chronic kidney disease or end stage renal disease; E78.5 Hyperlipidemia, unspecified; N18.6 End stage renal disease; E03.9 Hypothyroidism, unspecified; Z79.899 Other long term (current) drug therapy; Y83.2 Surgical operation with anastomosis, bypass or graft as the cause of abnormal reaction of the patient, or of later complication, without mention of misadventure at the time of the procedure
CPT/HCPCS: 36558; 36589; 76937; 99152; 99153; C1750; C1769; C1894; J1644; J2250; J3010; J7030; J7040

== ENCOUNTER 2020-09-29 11:32 | Inpatient (IN) | payer OTHER ==
[~2020-09-29] VITALS: Ht 177.8 cm; Wt 79.5 kg
[~2020-09-29 11:32] MED LIST changes: +HYDR10; +HYDRA25; +Vitamin D2000 UNIT PO
[2020-09-29 12:53] LABS: BASOPHILS ABSOLUTE AUTO 0.05 K/mm3 (0.00-0.23); BASOPHILS PERCENT AUTO 0 % (0-2); EOSINOPHILS ABSOLUTE AUTO 0.01 K/mm3 (0.00-0.68); EOSINOPHILS PERCENT AUTO 0 % (0-6); Hematocrit 28.3 % (37.0-53.0); Hemoglobin 8.9 g/dL (13.5-17.5); IMMATURE GRAN PERCENT AUTO 1 % (0-1); LYMPHOCYTES ABSOLUTE AUTO 0.45 K/mm3 (0.84-5.20); LYMPHOCYTES PERCENT AUTO 2 % (21-46); MONOCYTES ABSOLUTE AUTO 1.46 K/mm3 (0.16-1.47); MONOCYTES PERCENT AUTO 5 % (4-13); Mean Corpuscular HGB Conc 31.4 g/dL (31.5-36.5); Mean Corpuscular Volume 95 fL (80-100); Mean Platelet Volume 10.1 fL (9.1-12.4); NEUTROPHILS ABSOLUTE AUTO 27.73 K/mm3 (1.96-9.15); NEUTROPHILS PERCENT AUTO 92 % (41-73); Platelet Count 380 K/mm3 (150-400); RDW Coefficient Variation 13.2 % (11.7-14.2); RDW Standard Deviation 45.5 fL (35.1-46.3); Red Blood Cell Count 2.97 M/mm3 (4.30-5.90)
[2020-09-29 13:15] LABS: Albumin, Blood 2.6 g/dL (3.4-5.0); Albumin/Globulin Ratio 0.6 (0.8-1.8); Bilirubin, Total 0.8 mg/dL (0.1-1.0); Calcium, Blood 8.6 mg/dL (8.5-10.1); Creatinine, Blood 3.99 mg/dL (0.60-1.20); Globulin, Blood 4.6 g/dL (2.2-4.0); Potassium, Blood 3.1 mmol/L (3.5-5.5); Total Protein, Blood 7.2 g/dL (6.4-8.2)
[2020-09-29] MEDS ORDERED: PRINIVIL10 MG PO (14:23)
[2020-09-29] MEDS ORDERED: ACET325 PO (22:37)
[2020-09-29] MEDS ORDERED: DOCU100 PO (22:38)
[2020-09-29] MEDS ORDERED: HYDRA25 PO (22:39)
[2020-09-29] MEDS ORDERED: LOPE2C PO (22:42)
[2020-09-29] MEDS ORDERED: HYDR1TAB94 PO (22:43)
[2020-09-29] MEDS ORDERED: ONDA4ODT MM (22:44)
[2020-09-29] MEDS ORDERED: ONDA4 PO (22:44)
[2020-09-29] MEDS ORDERED: SENNA LAXATIVE8.6 MG PO (22:45)
--- NOTE | 2020-09-29 23:32 | NUR ---
RECIEVED REPORT FROM LUCINA TEJADA RN, AT 1931. PATIENT ARRIVED TO ROOM 325 VIA STRETCHER AT 1944 AND [facility] STAFF ASSISTED TO TRANSFER PATIENT TO HOSPITAL BED. PATIENT ALERT AND ORIENTED TO SELF. RIGHT-SIDED WEAKNESS NOTED, PATIENT STATES HE HAD A STOKE IN THE PAST BUT IS NOTED TO BEING A POOR HISTORIAN. ADMISSION ASSESSMENT COMPLETED; ULCER NOTED TO LEFT BUTTOCK. SEE CHART FOR IMAGE. H&P AND MED REC COMPLETED USING MEDICAL RECORDS. PATIENT SITUATED IN BED AND SHOWN HOW TO CALL FOR ASSISTANCE WITH CALL LIGHT. WILL CONTINUE TO MONITOR AND PROVIDE CARE NEEDED.
--- NOTE | 2020-09-30 03:17 | NUR ---
PATIENT IS PLEASANT AND COOPERATIVE WITH STAFF. LOW-GRADE FEVER UPON ADMISSION TO THE FLOOR AT 100.0. VITALS OTHERWISE STABLE. ALERT AND ORIENTED TO SELF ONLY. PATIENT STARTED ON IV ABX WITHOUT ANY S/SX OF ADVERSE REACTIONS NOTED OR REPORTED. DENIES PAIN AND DISCOMFORT. HAS BEEN SLEEPING FOR MAJORITY OF THE SHIFT. SENT CULTURES OF NARES AND THROAT PER PROTOCOL TO R/O HX OF MRSA. PATIENT HAS HAD NO CHANGES TO REPORT OF SINCE ADMISSION TO THE FLOOR. PATIENT CONTINUES TO SLEEP IN BED AT THIS TIME. WILL CONTINUE TO MONITOR AND PROVIDE CARE NEEDED.
[2020-09-30 04:47] LABS: BASOPHILS ABSOLUTE AUTO 0.07 K/mm3 (0.00-0.23); BASOPHILS PERCENT AUTO 0 % (0-2); EOSINOPHILS ABSOLUTE AUTO 0.24 K/mm3 (0.00-0.68); EOSINOPHILS PERCENT AUTO 1 % (0-6); Hematocrit 25.9 % (37.0-53.0); Hemoglobin 8.4 g/dL (13.5-17.5); IMMATURE GRAN ABSOLUTE AUTO 0.19 K/mm3 (0.00-0.10); IMMATURE GRAN PERCENT AUTO 1 % (0-1); LYMPHOCYTES ABSOLUTE AUTO 0.79 K/mm3 (0.84-5.20); LYMPHOCYTES PERCENT AUTO 3 % (21-46); MONOCYTES ABSOLUTE AUTO 1.44 K/mm3 (0.16-1.47); MONOCYTES PERCENT AUTO 6 % (4-13); Mean Corpuscular HGB 31.2 pg (26.0-34.0); Mean Corpuscular HGB Conc 32.4 g/dL (31.5-36.5); Mean Corpuscular Volume 96 fL (80-100); NEUTROPHILS ABSOLUTE AUTO 23.02 K/mm3 (1.96-9.15); NEUTROPHILS PERCENT AUTO 89 % (41-73); Platelet Count 321 K/mm3 (150-400); RDW Coefficient Variation 13.3 % (11.7-14.2); RDW Standard Deviation 47.5 fL (35.1-46.3); Red Blood Cell Count 2.69 M/mm3 (4.30-5.90); White Blood Cell Count 25.75 K/mm3 (4.00-11.30)
[2020-09-30 05:07] LABS: Bun/Creatinine Ratio 5.2 (12.0-20.0); Calcium, Blood 7.9 mg/dL (8.5-10.1); Creatinine, Blood 5.38 mg/dL (0.60-1.20); Magnesium, Blood 2.3 mg/dL (1.6-2.4); Potassium, Blood 3.8 mmol/L (3.5-5.5)
--- NOTE | 2020-09-30 08:25 | NUR ---
0820 POSITIVE BLOOD CULTURE PT HAS POSITIVE BLOOD CULTURE; NOTIFIED AND AWARE; PT ON THE RIGHT ABX
--- NOTE | 2020-09-30 15:56 | NUR ---
DIALYSIS AND CARE RECEIVED A CALL FROM GRANDDAUGHTER AND SHE WAS ABLE TO TELL ME THAT THE PT DIALYSIS IS 2X A WEEK, FRIDAY AND FRIDAY; HOWEVER THE ALSO CALLED ME AND STATING THAT THE DIALYSIS DAY IS DURING FRIDAY AND FRIDAY. PT IS CONFUSED AND ONLY ALERT TO SELF AND RELATIVES. GRANDDAUGHTER ALSO STATED THAT THE PT LIVES AT [facility] WITH IN ONE ROOM. GRANDDAUGHTER STATED THAT THE COUPLE MIGHT NEED HELP UPON DISCHARGE. PT STATED THAT SHE IS WC BOUND, AND THE PT IS VERY WEAK TO DO ANYTHING WELL. SHE ALSO STATED THAT THE PT USES WC AT HOME.
--- NOTE | 2020-09-30 16:54 | NUR ---
SHIFT SUMMARY PT AO TO SELF ONLY AND RELATIVE. PT C/O PAIN ON HIS BUTTOCKS; MEDICATED PER EMAR. PT CALLED AND GRANDDAUGHTER; SEE OTHER NOTE UNDER DIALYSIS AND CARE. PT WOUND CLEANED AND DRESSED TODAY- SEE PIC IN CHART. PT VERY EMOTIONAL AND CRYING. STATED THAT THE PT WAS DIAGNOSED OF DIMENTIA. PT IS VERY WEAK- I WAS TOLD BY THE GRANDDAUGHTER THAT THE PT WAS ABLE TO USE FWW AT HOME WHEN STANDING AND CHANGING POSITION FROM CHAIR TO BED OR WC TO BED; HOWEVER HE GOT SO WEAK THAT HE IS NOW ALMOST BEDBOUND. BED IS IN THE LOWEST POSITION AND CALL LIGHTS WITHIN REACH. BED ALARM IS ON.
--- NOTE | 2020-10-01 04:44 | NUR ---
SHIFT SUMMARY PT ALERT AT START OF SHIFT, VERY ANXIOUS AND CRYING, STATING HE WAS WORRIED ABOUT HIS . PT ORIENTED TO SELF AND BIRTHDAY BUT OTHERWISE SEEMED CONFUSED. PT ABLE TO SPEAK WITH ON THE PHONE, GIVEN PAIN MEDICATION FOR PAIN, WELL TRAZODONE, WHICH HE TAKES AT BASELINE. PT WAS THEN ABLE TO BECOME MORE CALM AND HAS BEEN RESTING. ATTENS CHANGED AND PT TURNED PRN/Q2. PT DID NOT WANT HIS FACE CLEANED UP BEFORE BED. WOUND ON SACRAL AREA CLEANED AND NEW MEPILEX PLACED THIS SHIFT. PT RESTING AT THIS TIME WITH BED ALARM ON AND CALL LIGHT IN REACH.
[2020-10-01 09:54] LABS: BASOPHILS ABSOLUTE AUTO 0.03 K/mm3 (0.00-0.23); BASOPHILS PERCENT AUTO 0 % (0-2); EOSINOPHILS ABSOLUTE AUTO 0.31 K/mm3 (0.00-0.68); EOSINOPHILS PERCENT AUTO 1 % (0-6); IMMATURE GRAN ABSOLUTE AUTO 0.21 K/mm3 (0.00-0.10); IMMATURE GRAN PERCENT AUTO 1 % (0-1); LYMPHOCYTES ABSOLUTE AUTO 0.77 K/mm3 (0.84-5.20); LYMPHOCYTES PERCENT AUTO 4 % (21-46); MONOCYTES ABSOLUTE AUTO 1.04 K/mm3 (0.16-1.47); MONOCYTES PERCENT AUTO 5 % (4-13); Mean Corpuscular HGB 30.8 pg (26.0-34.0); Mean Corpuscular Volume 96 fL (80-100); Mean Platelet Volume 10.1 fL (9.1-12.4); NEUTROPHILS ABSOLUTE AUTO 19.53 K/mm3 (1.96-9.15); NEUTROPHILS PERCENT AUTO 89 % (41-73); Platelet Count 347 K/mm3 (150-400); RDW Coefficient Variation 13.4 % (11.7-14.2); RDW Standard Deviation 47.8 fL (35.1-46.3); White Blood Cell Count 21.89 K/mm3 (4.00-11.30)
[2020-10-01 10:15] LABS: Bun/Creatinine Ratio 6.4 (12.0-20.0); Creatinine, Blood 7.01 mg/dL (0.60-1.20); Potassium, Blood 3.6 mmol/L (3.5-5.5)
[2020-10-01 15:36] LABS: Vancomycin, Random 16.6 ug/mL
--- NOTE | 2020-10-01 18:26 | NUR ---
SHIFT SUMMARY PT AOX2, DOES NOT USE CALL LIGHTS. PT IS Q2 TURN. MEPELEX CHANGED TODAY X2 AND WOUND CLEANSED. PT RECEIVED A CONSULT BY DR CARDOSO; AND WILL HAVE DIALYSIS TOMORROW. PT WILL BE RECEIVING VANCOMYCIN. PT VERY PAINFUL WHEN CHANGING POSITION; MEDICATED PER EMAR. PT USES THE URINAL TODAY WITH A LITTLE BIT OF URINE. VSS. BED ALARM IS ON AND CALL LIGHT WITHIN REACH; RE-EDUCATE THE PT TO USE THE CALL LIGHTS.
--- NOTE | 2020-10-02 06:02 | NUR ---
SHIFT SUMMARY PT RESTED WELL THROUGH NIGHT. CONTINUES TO BE CONFUSED, BUT SENTENCES NO LONGER INCOMPREHENDABLE. ABLE TO MAKE NEEDS KNOWN BY USING CALL LIGHT OR YELLING FROM ROOM. SATS >90% ON ROOM AIR. INCONTINENT UOP - BUT PT DOES TRY TO USE URINAL TIME TO TIME WITH NO SUCCESS. PT HAD TWO INCONTINENT BM'S. RN CHANGED MEPILEX X1. Q2 TURNS WITH PCT. NO C/O PAIN. VSS. CALL LIGHT WITHIN REACH, BED IN LOWEST POSITION. WILL CONTINUE TO MONITOR.
[2020-10-02 09:27] LABS: BASOPHILS ABSOLUTE AUTO 0.03 K/mm3 (0.00-0.23); BASOPHILS PERCENT AUTO 0 % (0-2); EOSINOPHILS ABSOLUTE AUTO 0.36 K/mm3 (0.00-0.68); EOSINOPHILS PERCENT AUTO 2 % (0-6); Hematocrit 25.7 % (37.0-53.0); Hemoglobin 8.1 g/dL (13.5-17.5); IMMATURE GRAN ABSOLUTE AUTO 0.52 K/mm3 (0.00-0.10); IMMATURE GRAN PERCENT AUTO 3 % (0-1); LYMPHOCYTES ABSOLUTE AUTO 1.29 K/mm3 (0.84-5.20); LYMPHOCYTES PERCENT AUTO 7 % (21-46); MONOCYTES ABSOLUTE AUTO 0.91 K/mm3 (0.16-1.47); MONOCYTES PERCENT AUTO 5 % (4-13); Mean Corpuscular HGB 30.6 pg (26.0-34.0); Mean Corpuscular HGB Conc 31.5 g/dL (31.5-36.5); Mean Corpuscular Volume 97 fL (80-100); Mean Platelet Volume 10.1 fL (9.1-12.4); NEUTROPHILS ABSOLUTE AUTO 15.46 K/mm3 (1.96-9.15); NEUTROPHILS PERCENT AUTO 83 % (41-73); Platelet Count 366 K/mm3 (150-400); RDW Coefficient Variation 13.2 % (11.7-14.2); RDW Standard Deviation 47.2 fL (35.1-46.3); Red Blood Cell Count 2.65 M/mm3 (4.30-5.90); White Blood Cell Count 18.57 K/mm3 (4.00-11.30)
[2020-10-02 09:54] LABS: Bun/Creatinine Ratio 7.5 (12.0-20.0); Creatinine, Blood 7.73 mg/dL (0.60-1.20); Potassium, Blood 3.7 mmol/L (3.5-5.5)
[2020-10-02 13:08] LABS: Vancomycin, Random 9.4 ug/mL
--- NOTE | 2020-10-02 17:56 | NUR ---
SHIFT SUMMARY PT RESTING QUIETLY AT START OF SHIFT. WOKE FOR AM CARE; PT INCONTINENT OF URINE, VOIDING ON BED ATTEMPTING TO USE URINAL. PT AND LINEN CLEANED. [id number] FOR BREAKFAST. PT THEN DOWN TO DIALYSIS. PT'S CALLED TO CK ON PT SEVERAL TIMES THRU OUT THE DAY. PT REPOSITIONED OFF BUTTOCKS WOUND. YRIS CHANGED D/T INCONTINENCE. DR DOW HERE TO SEE PT TODAY. POSSIBLE D/C HOME TOMORROW. PT HAS SOME CONFUSION. PER , PT WITH DEMENTIA. PT ABLE TO WORK WITH PT/OT TODAY. NO C/O. CALL LT IN REACH.
--- NOTE | 2020-10-02 21:42 | NUR ---
194 PT RESTING COMFORTABLY IN BED; BED ALARM APPLIED FOR SAFETY; ALERT AND ORIENTED X 2, ABLE TO FOLLOW SIMPLE VERBAL COMMANDS.
--- NOTE | 2020-10-03 03:58 | NUR ---
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
[2020-10-03 05:24] LABS: BASOPHILS ABSOLUTE AUTO 0.04 K/mm3 (0.00-0.23); BASOPHILS PERCENT AUTO 0 % (0-2); EOSINOPHILS ABSOLUTE AUTO 0.35 K/mm3 (0.00-0.68); EOSINOPHILS PERCENT AUTO 3 % (0-6); Hemoglobin 7.8 g/dL (13.5-17.5); IMMATURE GRAN PERCENT AUTO 4 % (0-1); LYMPHOCYTES ABSOLUTE AUTO 1.24 K/mm3 (0.84-5.20); LYMPHOCYTES PERCENT AUTO 10 % (21-46); MONOCYTES ABSOLUTE AUTO 0.75 K/mm3 (0.16-1.47); MONOCYTES PERCENT AUTO 6 % (4-13); Mean Corpuscular HGB 30.4 pg (26.0-34.0); Mean Corpuscular HGB Conc 31.2 g/dL (31.5-36.5); Mean Corpuscular Volume 97 fL (80-100); Mean Platelet Volume 10.1 fL (9.1-12.4); NEUTROPHILS ABSOLUTE AUTO 9.98 K/mm3 (1.96-9.15); NEUTROPHILS PERCENT AUTO 78 % (41-73); Platelet Count 354 K/mm3 (150-400); RDW Coefficient Variation 13.1 % (11.7-14.2); RDW Standard Deviation 46.5 fL (35.1-46.3); Red Blood Cell Count 2.57 M/mm3 (4.30-5.90); White Blood Cell Count 12.86 K/mm3 (4.00-11.30)
[2020-10-03 05:49] LABS: Bun/Creatinine Ratio 6.6 (12.0-20.0); Calcium, Blood 8.1 mg/dL (8.5-10.1); Creatinine, Blood 4.97 mg/dL (0.60-1.20); Potassium, Blood 3.8 mmol/L (3.5-5.5)
--- NOTE | 2020-10-03 12:52 | NUR ---
PT AWAKE MOST OF THE DAY, TAKING A NAP AFTER BREAKFAST. INCONTINENT OF BOWEL AND BLADDER. NO DIALYSIS TODAY; PLAN FOR POSSIBLY FRIDAY. NO ACUTE CHANGES TO PRESENT. + BCX'S CALLED TO [facility]RG [facility] THIS AM, BUT REMAIN UNCHANGED FROM PREVIOUS RESULTS. PT WITH WOUND TO BUTTOCKS; MEPILEX DRSG PLACED THIS AM. PT C/O PAIN THIS AM D/T BED. PT REPOSITIONED AND MEDICATED FOR C/O PAIN. DR DOW HERE THIS AM TO SEE PT. PT TO D/C TO SNF. ADMINISTRATIVE SPECIALIST IN TO TALK WITH PT; PT AGREEABLE TO GO TO SNF. PT'S DAUGHTERS CALLED AND TALKED WITH PT BEFORE LUNCH. DENIED FURTHER NEEDS. CALL LT IN REACH.
[2020-10-03 13:23] LABS: Vancomycin, Random 21.7 ug/mL
[2020-10-03 15:40] LABS: Influenza A, PCR Negative (NEGATIVE); Influenza B, PCR Negative (NEGATIVE); Resp Syncytial Virus, PCR Negative (NEGATIVE); SARS-Cov-2 (COVID-19) PCR, MMC Negative (NEGATIVE)
--- NOTE | 2020-10-03 18:14 | NUR ---
PT ABLE TO D/C TO SNF, AFTER COVID RESULTS RECEIVED. [facility] AR[facility]ED [place] HERE TO P/U PT FOR TRANSPORT. LIFT TX TO W/C. REPORT CALLED SNF. FAMILY UPDATED ON PLAN OF CARE.
== END 2020-10-03 16:47 | DRG 871 ==
LOC: ER 11:32 → MEDS 11:33
PROVIDERS: Emergency Medicine; Internal Medicine; Pharmacist; ADMIT Internal Medicine
DX: A41.02 Sepsis due to Methicillin resistant Staphylococcus aureus (principal); L89.153 Pressure ulcer of sacral region, stage 3; G93.41 Metabolic encephalopathy; N18.6 End stage renal disease; I12.0 Hypertensive chronic kidney disease with stage 5 chronic kidney disease or end stage renal disease; Z20.828 Contact with and (suspected) exposure to other viral communicable diseases; E78.5 Hyperlipidemia, unspecified; E03.9 Hypothyroidism, unspecified; E87.6 Hypokalemia; K21.9 Gastro-esophageal reflux disease without esophagitis; D63.1 Anemia in chronic kidney disease; E11.22 Type 2 diabetes mellitus with diabetic chronic kidney disease; N40.0 Benign prostatic hyperplasia without lower urinary tract symptoms; M25.559 Pain in unspecified hip; Z99.2 Dependence on renal dialysis; Z86.73 Personal history of transient ischemic attack (TIA), and cerebral infarction without residual deficits
CPT/HCPCS: 0241U; 36415; 72170; 72192; 80048; 80053; 80202; 83605; 83735; 85025; 85651; 86141; 87040; 87070; 87077; 87081; 87147; 87186; 87205; 96365; 96367; 97110; 97162; 97166; 97530; 97535; 99285-25; A9270; A9270-GY; J0692; J0881; J1650; J3370; J7050

== ENCOUNTER → 2020-11-06 | Outpatient (CLI) | payer OTHER ==
[~2020-11-06] MED LIST changes: +ACET325 PO; +ACET500 PO; +AMLO10 PO; +ATOR20 PO; +CALCIUM ACETAT667 M2 PO; +CLOP75; +CLOP75 PO; +COLACE100 MG PO; +DOCU100 PO; +EUTHYROX25 MC1 PO; +HYDR1TAB94 PO; +HYDRA25 PO; +Hair, Skin & N1 EACH PO; +LEVSOD25 PO; +LOPE2C PO; +LOSA50 PO; +ONDA4 PO; +ONDA4ODT MM; +PRINIVIL10 MG PO; +Prinivil10 MG PO; +SENNA LAXATIVE8.6 MG PO; +TAMSULOSIN HCL0.4 M1 PO; +[UNRECOGNIZED DRUG - OTHER] TOP
== END | disposition home or self-care (01) ==
LOC: LAB SHORT 13:30 → LAB HH 13:30
DX: S81.802A Unspecified open wound, left lower leg, initial encounter (principal); L89.159 Pressure ulcer of sacral region, unspecified stage
CPT/HCPCS: 87070; 87077; 87147; 87186; 87205

== ENCOUNTER 2020-11-08 12:52 | Day surgery (SDC) | payer OTHER ==
[~2020-11-08] VITALS: Ht 172.7 cm; Wt 77.0 kg
[~2020-11-08 12:52] MED LIST changes: -ACET500 PO; -AMLO10 PO; -ATOR20 PO; -CALCIUM ACETAT667 M2 PO; -CLOP75; -CLOP75 PO; -COLACE100 MG PO; -EUTHYROX25 MC1 PO; -Hair, Skin & N1 EACH PO; -LEVSOD25 PO; -LOSA50 PO; -Prinivil10 MG PO; -TAMSULOSIN HCL0.4 M1 PO; -[UNRECOGNIZED DRUG - OTHER] TOP
[2020-11-08] MEDS ORDERED: [UNRECOGNIZED DRUG - OTHER] TOP (13:34)
--- NOTE | 2020-11-08 16:05 | NUR ---
PT TO RECOVERY ROOM POST PROCEDURE. PT AWAKE AND ANSWERING QUESTIONS APPROPRIATELY; DENIE PAIN POST PROCEDURE. MONITOR SB 40-50'S, B/P 187/77, AFEBRILE, SPO2 97-98% RA. PT ASYMPTOMATIC WITH HR AND B/P. L AC ACCESS SITE ATTEMPT NO SWELLING/HEMATOMA, JOSE AND TEGADERM DRSG INTACT. PT HAS GOOD SENSATION IN L ARM, ABLE TO RAISE ARM ABOVE HEAD, WIGGLE FINGERS AND SQUEEZE HANDS WHEN DIRECTED.
--- NOTE | 2020-11-08 16:50 | NUR ---
DR LESLIE NOTIFIED OF PT'S CONTINUED ELEVATED B/P, PT ASYMPTOMATIC; NO ORDERS RECEIVED.
--- NOTE | 2020-11-08 17:05 | NUR ---
PT RECEIVED DISCHARGE INSTRUCTIONS AND MED LIST; VERBALIZED GOOD UNDERSTANDING. DISCHARGE INSTRUCTIONS WERE CALLED TO Gwen WYLIE MT AT . PT LEFT FACILITY VIA W/C, CONDITION STABLE.
== END 2020-11-08 22:34 | disposition home or self-care (01) ==
LOC: MHTC 12:52
DX: I12.0 Hypertensive chronic kidney disease with stage 5 chronic kidney disease or end stage renal disease (principal); E11.22 Type 2 diabetes mellitus with diabetic chronic kidney disease; N18.6 End stage renal disease
CPT/HCPCS: 64415; 99152; 99153; C1769; G2170; J1644; J2250; J3010; J7040

== ENCOUNTER 2020-12-06 13:56 | Day surgery (SDC) | payer OTHER ==
[~2020-12-06] VITALS: Ht 172.7 cm; Wt 82.0 kg
[~2020-12-06 13:56] MED LIST changes: +[UNRECOGNIZED DRUG - OTHER] TOP
[2020-12-06] MEDS ORDERED: ACET500 PO (14:52)
--- NOTE | 2020-12-06 17:00 | NUR ---
REPORT FROM BENSON BECKWITH. LEFT ARM SITE SOFT AND NONTENDER DRESSING DRY AND INTACT. PATIENT SITTING UP IN BED AND HAVING DINNER WITH NO COMPLAINTS.
--- NOTE | 2020-12-06 17:25 | NUR ---
BARRY MARTÍNEZ PHONED. SPOKE TO ALEISHA. FULL REPORT GIVEN. WILL SEND [facility] WITH PATIENT ASK REQUESTED BY ALEISHA. SHE WILL SEND TO [facility] FOR DISPENSING.
[2020-12-06] MEDS ORDERED: CLOP75 (17:29)
--- NOTE | 2020-12-06 18:14 | NUR ---
APTIENT DRESSED WITH STANDBY ASSIST. LEFT FISULA SITE SOFT AND NONTENDER. ARM SLING IN PLACE. PATIENT TRANSFERRED WITH HIS WHEELCAHIR TP WAITING TRANSPORT VAN.
--- NOTE | 2020-12-06 18:27 | NUR ---
CALLED BARRY MARTÍNEZ. SPOKE TO ROSSANA A MEDIA PROMOTER TO UPDATE THEM ON PATIENT. RETURNING VIA VAN. SLING IN PLACE. SITE CLEAR AND TO BE AWARE OF LEFT ARM.
== END 2020-12-06 22:45 | disposition home or self-care (01) ==
LOC: MHTC 13:56
DX: I12.0 Hypertensive chronic kidney disease with stage 5 chronic kidney disease or end stage renal disease (principal); E11.22 Type 2 diabetes mellitus with diabetic chronic kidney disease; N18.6 End stage renal disease; E78.5 Hyperlipidemia, unspecified; E03.9 Hypothyroidism, unspecified; I69.359 Hemiplegia and hemiparesis following cerebral infarction affecting unspecified side; Z99.2 Dependence on renal dialysis; Z87.891 Personal history of nicotine dependence
CPT/HCPCS: 64415; 76937; 99152; 99153; A9270; C1725; C1769; C1889; C1894; G2170; J1644; J2250; J3010; J7030; J7040

== ENCOUNTER → 2021-03-30 | Outpatient (CLI) | payer OTHER ==
[~2021-03-30] MED LIST changes: +ACET500 PO; +AMLO10 PO; +ATOR20 PO; +CALCIUM ACETAT667 M2 PO; +CLOP75; +CLOP75 PO; +COLACE100 MG PO; +EUTHYROX25 MC1 PO; +Hair, Skin & N1 EACH PO; +LEVSOD25 PO; +LOSA50 PO; +Prinivil10 MG PO; +TAMSULOSIN HCL0.4 M1 PO
[2021-03-30 17:59] LABS: Appearance, Urine Cloudy (Clear); Bilirubin, Urine Neg (Neg); Blood, Urine 5+ (Neg); Color, Urine Yellow (P-Yellow); Glucose Qualitative, Urine 2+ (Neg); Ketones, Urine Neg (Neg); Leukocyte Esterase, Urine 3+ (Neg); Nitrite, Urine Neg (Neg); Protein, Urine 3+ (Neg); Urobilinogen, Urine NORM (Normal)
[2021-03-30 18:18] LABS: White Blood Cells, Urine TNTC /hpf (0-5)
[2021-03-30 18:19] LABS: Amorphous Mod (0-Heavy); Bacteria Many /hpf; Squamous Epithelial Cells Rare /hpf (Few)
== END ==
LOC: LAB SHORT 12:00
PROVIDERS: Physician Assistant
DX: N39.0 Urinary tract infection, site not specified (principal)
CPT/HCPCS: 81001; 87077; 87086; 87186

== ENCOUNTER 2021-04-06 09:58 | Observation (INO) | payer OTHER ==
[~2021-04-06] VITALS: Ht 165.1 cm; Wt 67.7 kg
[~2021-04-06 09:58] MED LIST changes: -AMLO10 PO; -ATOR20 PO; -CALCIUM ACETAT667 M2 PO; -CLOP75 PO; -COLACE100 MG PO; -EUTHYROX25 MC1 PO; -Hair, Skin & N1 EACH PO; -LEVSOD25 PO; -LOSA50 PO; -Prinivil10 MG PO; -TAMSULOSIN HCL0.4 M1 PO
[2021-04-06 10:19] LABS: BASOPHILS ABSOLUTE AUTO 0.02 K/mm3 (0.00-0.23); BASOPHILS PERCENT AUTO 0 % (0-2); EOSINOPHILS ABSOLUTE AUTO 0.23 K/mm3 (0.00-0.68); EOSINOPHILS PERCENT AUTO 3 % (0-6); Hematocrit 18.5 % (37.0-53.0); IMMATURE GRAN ABSOLUTE AUTO 0.11 K/mm3 (0.00-0.10); IMMATURE GRAN PERCENT AUTO 1 % (0-1); LYMPHOCYTES ABSOLUTE AUTO 1.04 K/mm3 (0.84-5.20); LYMPHOCYTES PERCENT AUTO 12 % (21-46); MONOCYTES ABSOLUTE AUTO 0.39 K/mm3 (0.16-1.47); MONOCYTES PERCENT AUTO 4 % (4-13); Mean Corpuscular HGB 31.3 pg (26.0-34.0); Mean Corpuscular HGB Conc 30.3 g/dL (31.5-36.5); Mean Corpuscular Volume 103 fL (80-100); Mean Platelet Volume 9.7 fL (9.1-12.4); NEUTROPHILS ABSOLUTE AUTO 7.13 K/mm3 (1.96-9.15); NEUTROPHILS PERCENT AUTO 80 % (41-73); Platelet Count 252 K/mm3 (150-400); RDW Coefficient Variation 15.8 % (11.7-14.2); RDW Standard Deviation 56.8 fL (35.1-46.3); Red Blood Cell Count 1.79 M/mm3 (4.30-5.90); White Blood Cell Count 8.92 K/mm3 (4.00-11.30)
[2021-04-06 10:23] LABS: Hemoglobin 5.6 g/dL (13.5-17.5)
[2021-04-06 10:51] LABS: Albumin/Globulin Ratio 0.9 (0.8-1.8); Bilirubin, Total 0.4 mg/dL (0.1-1.0); Bun/Creatinine Ratio 7.2 (12.0-20.0); Calcium, Blood 7.9 mg/dL (8.5-10.1); Creatinine, Blood 3.6 mg/dL (0.60-1.20); Globulin, Blood 3.4 g/dL (2.2-4.0); Potassium, Blood 3.7 mmol/L (3.5-5.5); Total Protein, Blood 6.4 g/dL (6.4-8.2)
[2021-04-06] MEDS ORDERED: ATOR20 PO ×2 (11:43→12:23)
[2021-04-06] MEDS ORDERED: LOSA50 PO (11:44)
[2021-04-06] MEDS ORDERED: LEVSOD25 PO (11:44)
[2021-04-06] MEDS ORDERED: Hair, Skin & N1 EACH PO (11:45)
[2021-04-06] MEDS ORDERED: COLACE100 MG PO (12:22)
[2021-04-06] MEDS ORDERED: CALCIUM ACETAT667 M2 PO (12:22)
[2021-04-06] MEDS ORDERED: TAMSULOSIN HCL0.4 M1 PO (12:22)
[2021-04-06] MEDS ORDERED: EUTHYROX25 MC1 PO (12:23)
[2021-04-06] MEDS ORDERED: AMLO10 PO (12:23)
[2021-04-06] MEDS ORDERED: TRAZ50 PO (12:24)
[2021-04-06] MEDS ORDERED: Prinivil10 MG PO (12:24)
[2021-04-06] MEDS ORDERED: PANT20 PO (12:24)
[2021-04-06] MEDS ORDERED: HYDRA25 PO (12:26)
[2021-04-06] MEDS ORDERED: CLOP75 PO (14:30)
--- NOTE | 2021-04-06 19:23 | NUR ---
SHIFT SUMMARY ED ADMIT THIS AFTERNOON. PATIENT CONFUSED W/ HISTORY OF DEMENTIA. PATIENT LIVES AT [facility], STAFF ABLE TO GIVE INFORMATION ABOUT PATIENT. DENIES PAIN, NAUSEA, AND SHORTNESS OF BREATH. TARRY STOOLS. TWO UNITS RBC'S RECIEVED TODAY. DR. CARDOSO AND DR. VALENZUELA CONSULTED. PATIENT ON CLEAR LIQUID DIET TOMORROW MORNING FOR ENDOSCOPY IN AFTERNOON. PATIEN ONLY COMPLETED HALF DIALYSIS SESSION TODAY, POSSIBLE DIALYSIS TOMORROW.
[2021-04-06 20:30] LABS: SARS-Cov-2 (COVID-19) PCR, MMC NEGATIVE (NEGATIVE)
--- NOTE | 2021-04-07 04:26 | NUR ---
ACCOUNT CLERK SUMMARY PT A/O X2-3 WITH FORGETFULNESS. SLEPT WELL TONIGHT. DENIES PAIN, SOB, NAUSEA. PT HAD 1 BLACK TARRY BM OVERNIGHT. INCONTIENT TO BOWEL AND BLADDER. REPOSITIONING PROVIDED OVERNIGHT. VSS, NO ACUTE CHANGES. CONTINUES TO HAVE RIGHT SIDED WEAKNESS DUE TO HX OF CVA. CALL LIGHT WITHIN REACH, BED ALARM ON, WILL CONTINUE TO MONITOR.
[2021-04-07 05:09] LABS: BASOPHILS ABSOLUTE AUTO 0.03 K/mm3 (0.00-0.23); BASOPHILS PERCENT AUTO 0 % (0-2); EOSINOPHILS ABSOLUTE AUTO 0.24 K/mm3 (0.00-0.68); EOSINOPHILS PERCENT AUTO 3 % (0-6); Hematocrit 24.9 % (37.0-53.0); Hemoglobin 7.9 g/dL (13.5-17.5); IMMATURE GRAN ABSOLUTE AUTO 0.07 K/mm3 (0.00-0.10); IMMATURE GRAN PERCENT AUTO 1 % (0-1); LYMPHOCYTES ABSOLUTE AUTO 1.57 K/mm3 (0.84-5.20); LYMPHOCYTES PERCENT AUTO 18 % (21-46); MONOCYTES ABSOLUTE AUTO 0.63 K/mm3 (0.16-1.47); MONOCYTES PERCENT AUTO 7 % (4-13); Mean Corpuscular HGB 29.6 pg (26.0-34.0); Mean Corpuscular HGB Conc 31.7 g/dL (31.5-36.5); Mean Platelet Volume 9.8 fL (9.1-12.4); NEUTROPHILS ABSOLUTE AUTO 6.12 K/mm3 (1.96-9.15); NEUTROPHILS PERCENT AUTO 71 % (41-73); Platelet Count 254 K/mm3 (150-400); RDW Standard Deviation 69.8 fL (35.1-46.3); Red Blood Cell Count 2.67 M/mm3 (4.30-5.90); White Blood Cell Count 8.66 K/mm3 (4.00-11.30)
[2021-04-07 05:10] LABS: Mean Corpuscular Volume 93 fL (80-100)
[2021-04-07 05:34] LABS: Bun/Creatinine Ratio 7.7 (12.0-20.0); Creatinine, Blood 5.21 mg/dL (0.60-1.20); Potassium, Blood 4.1 mmol/L (3.5-5.5)
--- NOTE | 2021-04-07 06:49 | NUR ---
0645 PER PEST LOCATOR, PT'S HR HAS DECREASED TO 45BPM AND HAS SUSTAINED FOR A FEW MIN. PT HAS BEEN RUI AVG IN THE 50'S OVERNIGHT AND HAS SLOWLY TRENDED DOWN TO THE MID 40'S. PT IS CURRENTLY ASLEEP AND EASILY AROUSIBLE TO VOICE. CELLARS SUPERVISOR KAUSHIK MADE AWARE OF THIS. PT IS ASYMPTOMATIC. BED ALARM ON, CALL LIGHT WITHIN REACH, WILL GIVE REPORT TO ONCOMING RN.
--- NOTE | 2021-04-08 04:23 | NUR ---
EMPLOYEE BENEFITS DIRECTOR SUMMARY PT A/O X1 TO SELF WITH NONSENSICAL SPEECH. MAKES INAPPROPRIATE COMMENTS TO STAFF AT TIMES. SLEPT WELL TONIGHT. DENIES PAIN, SOB, NAUSEA. 1 BLACK TARRY BOWEL MOVEMENT OVERNIGHT. WATSON PATNENT AND DRAINING TO GRAVITY. TELE BEEN RUNNING A. FIB IN THE 50'S. CALL LIGHT WITHIN REACH, BED ALARM ON. WILL CONTINUE TO MONITOR.
[2021-04-08 05:14] LABS: BASOPHILS ABSOLUTE AUTO 0.04 K/mm3 (0.00-0.23); BASOPHILS PERCENT AUTO 1 % (0-2); EOSINOPHILS ABSOLUTE AUTO 0.37 K/mm3 (0.00-0.68); EOSINOPHILS PERCENT AUTO 4 % (0-6); Hematocrit 25.1 % (37.0-53.0); Hemoglobin 8.1 g/dL (13.5-17.5); IMMATURE GRAN ABSOLUTE AUTO 0.05 K/mm3 (0.00-0.10); IMMATURE GRAN PERCENT AUTO 1 % (0-1); LYMPHOCYTES ABSOLUTE AUTO 1.62 K/mm3 (0.84-5.20); LYMPHOCYTES PERCENT AUTO 19 % (21-46); MONOCYTES ABSOLUTE AUTO 0.78 K/mm3 (0.16-1.47); MONOCYTES PERCENT AUTO 9 % (4-13); Mean Corpuscular HGB Conc 32.3 g/dL (31.5-36.5); Mean Corpuscular Volume 93 fL (80-100); Mean Platelet Volume 10.1 fL (9.1-12.4); NEUTROPHILS ABSOLUTE AUTO 5.91 K/mm3 (1.96-9.15); NEUTROPHILS PERCENT AUTO 67 % (41-73); Platelet Count 258 K/mm3 (150-400); RDW Coefficient Variation 19.9 % (11.7-14.2); RDW Standard Deviation 66.4 fL (35.1-46.3); White Blood Cell Count 8.77 K/mm3 (4.00-11.30)
[2021-04-08 05:50] LABS: Albumin, Blood 2.9 g/dL (3.4-5.0); Anion Gap 6 mmol/L (6-16); Blood Urea Nitrogen 27 mg/dL (8-24); Bun/Creatinine Ratio 6.4 (12.0-20.0); CO2, Blood 28 mmol/L (21-32); Calcium, Blood 7.9 mg/dL (8.5-10.1); Chloride, Blood 104 mmol/L (98-108); Creatinine, Blood 4.23 mg/dL (0.60-1.20); Glomerular Filtration Rate 15 (60-); Glucose, Blood 80 mg/dL (70-99); Sodium, Blood 138 mmol/L (136-145)
--- NOTE | 2021-04-08 11:36 | NUR ---
04/08/21 1136 Neha Wells History, Chart, Medications and Allergies reviewed before start of procedure.PT UNABLE TO SIGN OWN CONSENT. 2 MD CONSENT DONE FOR PROCEDURE. UNABLE TO REACH OR 2 GRANDDAUGHTERS. MONITOR INTACT WITH CONTINUOUS PULSE OXIMETRY AND INTERMITTENT BP. MAC CASE WITH DR. CLARKE
--- NOTE | 2021-04-08 11:50 | NUR ---
REPORT CALLED FROM DAY SURGERY, RIN. EGD COMPLETE.
--- NOTE | 2021-04-08 20:28 | NUR ---
ELEVATED TEMP PT HAS ELEVATED ORAL TEMP OF 100.7. PT IS A/O X2-3 WITH BASELINE DEMENTIA. ROOM TEMP TURNED DOWN, BLANKETS REMOVED. COOL WASHCLOTH APPLIED TO FOREHEAD, AND ICE PACK ON NECK. BED ALARM ON, CALL LIGHT WITHIN REACH. WILL CONTINUE TO MONITOR. PT DENIES PAIN.
--- NOTE | 2021-04-09 00:05 | NUR ---
TELE 2340 SOCKET PULLER NOTIFIED THIS RN. PT HAS BEEN RUNNING JUNCTIONAL RYTHMN WITH PJC'S SINCE AFTER PROCEDURE FROM DAY SHIFT. AFTER SOCKET PULLER REVIEWED STRIPS, SHE TOLD THIS RN PT HAS BEEN CONVERTING BACK AND FORTH FROM A.FIB TO THIS RYTHMN PRIOR TO SURGERY. PT IS ASYMOPTOMATIC AND CONTINUES TO BE SLEEPING. STRIP MILL OPERATOR MADE AWARE. CALL LIGHT WITHIN REACH, BED ALARM ON, WILL CONTINUE TO MONITOR.
--- NOTE | 2021-04-09 04:58 | NUR ---
CHIEF ARCHITECT SUMMARY PT A/O X2-3 WITH FORGETFULNESS. DEMENTIA AT BASELINE. SLEPT WELL TONIGHT. DENIES PAIN, SOB, NAUSEA. PT HAD NO COMPLAINTS OVERNIGHT. WATSON PATENT AND DRAINING TO GRAVITY. VSS. TELE HAS BEEN READING JUNCTIONAL RYTHMN WITH PJC'S IN THE LOW 50'S. CALL LIGHT WITHIN REACH, BED ALARM ON. WILL CONTINUE TO MONITOR.
[2021-04-09 05:00] LABS: BASOPHILS ABSOLUTE AUTO 0.04 K/mm3 (0.00-0.23); BASOPHILS PERCENT AUTO 0 % (0-2); EOSINOPHILS ABSOLUTE AUTO 0.34 K/mm3 (0.00-0.68); EOSINOPHILS PERCENT AUTO 2 % (0-6); Hematocrit 25.7 % (37.0-53.0); Hemoglobin 8.2 g/dL (13.5-17.5); IMMATURE GRAN ABSOLUTE AUTO 0.11 K/mm3 (0.00-0.10); IMMATURE GRAN PERCENT AUTO 1 % (0-1); LYMPHOCYTES ABSOLUTE AUTO 1.56 K/mm3 (0.84-5.20); LYMPHOCYTES PERCENT AUTO 8 % (21-46); MONOCYTES ABSOLUTE AUTO 1.01 K/mm3 (0.16-1.47); MONOCYTES PERCENT AUTO 5 % (4-13); Mean Corpuscular HGB 29.8 pg (26.0-34.0); Mean Corpuscular HGB Conc 31.9 g/dL (31.5-36.5); Mean Corpuscular Volume 94 fL (80-100); Mean Platelet Volume 10.2 fL (9.1-12.4); NEUTROPHILS ABSOLUTE AUTO 15.55 K/mm3 (1.96-9.15); NEUTROPHILS PERCENT AUTO 84 % (41-73); Platelet Count 281 K/mm3 (150-400); RDW Coefficient Variation 19.4 % (11.7-14.2); Red Blood Cell Count 2.75 M/mm3 (4.30-5.90); White Blood Cell Count 18.61 K/mm3 (4.00-11.30)
[2021-04-09 05:27] LABS: Albumin, Blood 2.8 g/dL (3.4-5.0); Anion Gap 8 mmol/L (6-16); Blood Urea Nitrogen 34 mg/dL (8-24); Bun/Creatinine Ratio 6.4 (12.0-20.0); CO2, Blood 26 mmol/L (21-32); Calcium, Blood 7.9 mg/dL (8.5-10.1); Chloride, Blood 103 mmol/L (98-108); Creatinine, Blood 5.33 mg/dL (0.60-1.20); Glomerular Filtration Rate 11 (60-); Glucose, Blood 103 mg/dL (70-99); Phosphorus, Blood 4.3 mg/dL (2.5-4.9); Potassium, Blood 3.8 mmol/L (3.5-5.5); Sodium, Blood 137 mmol/L (136-145)
--- NOTE | 2021-04-09 14:02 | NUR ---
WATSON WATSON CATETHER WAS PLACED PER DR. CARDOSO'S DESCRETION ON 04/07 FOR RETENTION/OBSTRUCTION. DISCUSSED CONTINUED NEED WITH DR. CARDOSO. PER DR. CARDOSO, PREFERRABLE TO WAIT AT LEAST 72 HOURS TO REASSESS EFFECTIVENESS OF INCREASED PROSTATE MEDS. APPARENTLY, POST VOID RESIDUALS WERE >600 CC. THERE WILL BE A FAMILY/PALLIATIVE/MD/CM CONFERENCE TODAY. OBTAINED V.O. FROM DR. CARDOSO TO KEEP WATSON IN, ORDER UPDATED.
--- NOTE | 2021-04-09 15:20 | NUR ---
CARE COORDINATION REFERRAL - ADMIT: 04/06/21 DISCHARGE: DX: ANEMIA, GI BLEED CC: KWILCOX TRE CALL: ISABEL JAKI REGAN- [phone] RESIDENCE: [facility] CAREGIVER: ISABEL REGAN DX: CKD-S STAGE 5, GERD, HTN, SEE LIST DME: MOTORIZED WHEELCHAIR, URINAL, LIGHTWEIGHT WHEELCHAIR, 4-WHEELED WALKER CCM: NONE HOME HEALTH: [facility]- 2020 SUMMARY: 04/09/21- UPDATED BY PHOENIX WITH PALLIATIVE CARE, DURING MEETING WITH PT, HE STATED THAT HE WANTS TO CONT. DIALYSIS, HE WANTS TO LIVE AND CONTINUE CARE. DAUGHTER AND PHOENIX TALKED AND DAUGHTER HAS ASKED FOR SOME TIME TO MAKE DECISION. SHE WILL CALL EITHER MYSELF OR PHOENIX AFTER SHE HAS THOUGHT ABOUT EVERYTHING. UPDATED QUINN ON SITUATION.-RICK MET WITH DAUGHTER, MALENALUDWIN AND PHOENIX WITH PALLIATIVE CARE. DAUGHTER DISCUSSED THAT HER DAD'S WISHES ARE NOT TO CONTINUE DIALYSIS AND THAT HE DOES NOT WANT TO RETURN TO [facility]. SHE REPORTS THAT PT WAS MOVED FROM [place] TO [facility] LAST WEEK DUE TO HIS INCREASE IN CARE NEEDS. DISCUSSED WHAT PT HAS TOLD FAMILY AND STAFF ABOUT HIS WISHES. COMFORT CARE AND HOSPICE WAS DISCUSSED AND DAUGHTER HAS ELECTED TO HONOR HIS WISHES TO STOP DIALYSIS. PT HAS STATED THAT HE DOES NOT WANT TO GO BACK TO [facility] AND HE WOULD LIKE TO GO BACK TO [place] TO BE WITH HIS . DR. BALL WAS UPDATED ON FAMILY'S WISHES AND PUTTING PT ON COMFORT CARE. FAMILY WOULD LIKE TO USE [facility] FOR HIS CARE. DAUGHTER TO GO AND SPEAK WITH DAD WITH PALLIATIVE CARE. -RICK
--- NOTE | 2021-04-09 16:08 | NUR ---
Shift Summary AOx2, pleasant and cooperative. Conference held this afternoon. Daughter and son-in-law visited. called and explains to this RN that patient does not want to return to prior place of living ([facility]). TANG Malcolm from [facility] called for updates. She can be reached at [phone] for further updates. Tee remains patent and draining clear yellow urine. Denies pain, nausea, vomiting. Appetite is decent. Worked with OT. Had dialysis today. No acute changes, WCTM.
--- NOTE | 2021-04-09 16:34 | NUR ---
Initial Pal Care visit after Family conference with Cem, Conchita and [facility] Omar. Cem, Linda, had long conversation with Dr See, yesterday and verbalized a good understanding that her dad would not see improvement at this point, even with dialysis. Cem, expressed that she understood dialysis may be prolonging pt's life and his reported misery with it. WE had a long meeting discussing options and goals of care. CONCHITA Mckeon, by phone made decision to discontinue dialysis and put pt on comfort care. Cem and I went to pt's room to discuss plan of care. Pt is emotionally labile and has clear lapses in memory and mentation/cognition. He does not remember stating he would rather than continue with dialysis or asking to stop. He states he wants to continue dialysis so he can "take care of his ". This made the decision to transition to comfort care very difficult for his cem and we agreed to revisit these issues and the plan tomorrow. Pt/family do not want him to return to [facility]. Pt is bedbound and a lift transfer. OT eval reviewed and it does not appear pt can participate or progress with therapy. In addition to his kidney and heart disease, Pt has had many strokes per cem and this has affected his memory and brain function. Pt gets tearful when talking about family, especially his . He is fixated on a pill he "is suppose to have before dialysis" and that is the only reason he is sick, per pt. He states repeatedly, I am never sick. I have to take care of my . Pt is very happy to see his cem. I left them to visit and cem will contact us tomorrow to further discuss goals of care and d/c planning. Update on all of the above provided to pt's RN, THU from [facility] and from [facility]-.
[2021-04-10 04:42] LABS: BASOPHILS ABSOLUTE AUTO 0.03 K/mm3 (0.00-0.23); BASOPHILS PERCENT AUTO 0 % (0-2); EOSINOPHILS ABSOLUTE AUTO 0.34 K/mm3 (0.00-0.68); EOSINOPHILS PERCENT AUTO 4 % (0-6); Hematocrit 24.8 % (37.0-53.0); Hemoglobin 7.8 g/dL (13.5-17.5); IMMATURE GRAN ABSOLUTE AUTO 0.04 K/mm3 (0.00-0.10); IMMATURE GRAN PERCENT AUTO 1 % (0-1); LYMPHOCYTES ABSOLUTE AUTO 1.15 K/mm3 (0.84-5.20); LYMPHOCYTES PERCENT AUTO 13 % (21-46); MONOCYTES ABSOLUTE AUTO 0.73 K/mm3 (0.16-1.47); MONOCYTES PERCENT AUTO 8 % (4-13); Mean Corpuscular HGB Conc 31.5 g/dL (31.5-36.5); Mean Corpuscular Volume 95 fL (80-100); Mean Platelet Volume 10.1 fL (9.1-12.4); NEUTROPHILS PERCENT AUTO 74 % (41-73); Platelet Count 233 K/mm3 (150-400); RDW Coefficient Variation 19.5 % (11.7-14.2); RDW Standard Deviation 64.1 fL (35.1-46.3); White Blood Cell Count 8.79 K/mm3 (4.00-11.30)
[2021-04-10 05:04] LABS: Albumin, Blood 2.7 g/dL (3.4-5.0); Anion Gap 4 mmol/L (6-16); Blood Urea Nitrogen 23 mg/dL (8-24); Bun/Creatinine Ratio 5.5 (12.0-20.0); CO2, Blood 30 mmol/L (21-32); Calcium, Blood 7.6 mg/dL (8.5-10.1); Chloride, Blood 104 mmol/L (98-108); Creatinine, Blood 4.21 mg/dL (0.60-1.20); Glomerular Filtration Rate 15 (60-); Glucose, Blood 85 mg/dL (70-99); Phosphorus, Blood 3.8 mg/dL (2.5-4.9); Potassium, Blood 3.7 mmol/L (3.5-5.5); Sodium, Blood 138 mmol/L (136-145)
--- NOTE | 2021-04-10 05:16 | NUR ---
PT with ESRD on hemodialysis has DNR status. PT is calm & quiet but confused with baseline dementia documented. but unable to live with Spouse due to level of care needed PT has been living at [facility]. PT has not complained about dialysis this shift. Needs DC planning due to high level of care needed for discharge. Has clark cath placed here for urinary retention. Had GI bleed with EDG done this stay, no signs of active bleeding.HBG less than 8 this AM. HAs DTR involved with dc planning.
--- NOTE | 2021-04-10 15:56 | NUR ---
Shift Summary Remains confused. When talking with staff, patient becomes tearful RE health decline and the reality that may be near. No acute changes medically. Has not refused meds for this RN. Appetite remains fairly the same as yesterday. Worked with PT. Resting in bed. RISATM.
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
[2021-04-11 05:48] LABS: BASOPHILS ABSOLUTE AUTO 0.04 K/mm3 (0.00-0.23); BASOPHILS PERCENT AUTO 1 % (0-2); EOSINOPHILS ABSOLUTE AUTO 0.44 K/mm3 (0.00-0.68); EOSINOPHILS PERCENT AUTO 5 % (0-6); Hematocrit 24.1 % (37.0-53.0); Hemoglobin 7.6 g/dL (13.5-17.5); IMMATURE GRAN ABSOLUTE AUTO 0.03 K/mm3 (0.00-0.10); IMMATURE GRAN PERCENT AUTO 0 % (0-1); LYMPHOCYTES ABSOLUTE AUTO 1.45 K/mm3 (0.84-5.20); LYMPHOCYTES PERCENT AUTO 17 % (21-46); MONOCYTES ABSOLUTE AUTO 0.67 K/mm3 (0.16-1.47); MONOCYTES PERCENT AUTO 8 % (4-13); Mean Corpuscular HGB Conc 31.5 g/dL (31.5-36.5); Mean Corpuscular Volume 95 fL (80-100); Mean Platelet Volume 10.4 fL (9.1-12.4); NEUTROPHILS ABSOLUTE AUTO 6.06 K/mm3 (1.96-9.15); NEUTROPHILS PERCENT AUTO 70 % (41-73); Platelet Count 267 K/mm3 (150-400); RDW Coefficient Variation 18.6 % (11.7-14.2); RDW Standard Deviation 65.1 fL (35.1-46.3); Red Blood Cell Count 2.53 M/mm3 (4.30-5.90); White Blood Cell Count 8.69 K/mm3 (4.00-11.30)
[2021-04-11 06:08] LABS: Calcium, Blood 7.7 mg/dL (8.5-10.1); Creatinine, Blood 5.44 mg/dL (0.60-1.20); Potassium, Blood 3.8 mmol/L (3.5-5.5)
--- NOTE | 2021-04-11 18:00 | NUR ---
SHIFT SUMMARY: NO ACUTE EVENTS. HAD DIALYSIS THIS MORNING, TOLERATED WELL. A&O X 1-2, CONFUSED AND SPEECH IS NONSENSICAL AT TIMES. LIMITED MOBILITY ON R SIDE. WATSON D/C'D, INCONTINENT, WEARING ATTENDS. WORKED WITH PHYSICAL THERAPY, DANGLED AT BEDSIDE FOR ~ 30 SECONDS. NO EVENTS ON TELEMETRY. DENIES PAIN. TOLERATING PO INTAKE. TALKING TO FAMILY BY PHONE.
--- NOTE | 2021-04-11 23:00 | NUR ---
PHYSICIAN COMMUNICATION RECEIVED A CALL FROM DR BALL WHO SAID TO ORDER ONE UNIT OF PRBC'S TO BE ADMINISTERED TO THE PATIENT.
[2021-04-12 01:16] LABS: BASOPHILS ABSOLUTE AUTO 0.02 K/mm3 (0.00-0.23); BASOPHILS PERCENT AUTO 0 % (0-2); EOSINOPHILS ABSOLUTE AUTO 0.36 K/mm3 (0.00-0.68); EOSINOPHILS PERCENT AUTO 4 % (0-6); Hematocrit 23.8 % (37.0-53.0); Hemoglobin 7.8 g/dL (13.5-17.5); IMMATURE GRAN ABSOLUTE AUTO 0.03 K/mm3 (0.00-0.10); IMMATURE GRAN PERCENT AUTO 0 % (0-1); LYMPHOCYTES ABSOLUTE AUTO 1.25 K/mm3 (0.84-5.20); LYMPHOCYTES PERCENT AUTO 13 % (21-46); MONOCYTES ABSOLUTE AUTO 0.69 K/mm3 (0.16-1.47); MONOCYTES PERCENT AUTO 7 % (4-13); Mean Corpuscular HGB 30.4 pg (26.0-34.0); Mean Corpuscular HGB Conc 32.8 g/dL (31.5-36.5); Mean Corpuscular Volume 93 fL (80-100); Mean Platelet Volume 9.5 fL (9.1-12.4); NEUTROPHILS ABSOLUTE AUTO 7.02 K/mm3 (1.96-9.15); NEUTROPHILS PERCENT AUTO 75 % (41-73); Platelet Count 222 K/mm3 (150-400); RDW Standard Deviation 60.8 fL (35.1-46.3); Red Blood Cell Count 2.57 M/mm3 (4.30-5.90); White Blood Cell Count 9.37 K/mm3 (4.00-11.30)
[2021-04-12 01:30] LABS: Bun/Creatinine Ratio 6.9 (12.0-20.0); Calcium, Blood 7.7 mg/dL (8.5-10.1); Creatinine, Blood 4.03 mg/dL (0.60-1.20); Potassium, Blood 3.7 mmol/L (3.5-5.5)
[2021-04-12 06:28] LABS: Hematocrit 28.5 % (37.0-53.0); Hemoglobin 9.1 g/dL (13.5-17.5)
--- NOTE | 2021-04-12 07:06 | NUR ---
SHIFT SUMMARY PATIENT ALERT AND ORIENTED TO SELF. HAD NO COMPLAINTS OF PAIN OR SHORTNESS OF BREATH. RECEIVED ONE UNIT OF PRBC'S. NO ACUTE ISSUES NOTED OVERNIGHT. IV PATENT AND FLUSHED. BED IN LOWEST POSITION WITH WHEELS LOCKED AND ALARM ON. CALL LIGHT WITHIN REACH. REPORT GIVEN TO ONCOMING RN.
[2021-04-12] MEDS ORDERED: Prinivil10 MG PO (13:24)
--- NOTE | 2021-04-12 17:03 | NUR ---
PATIENT DISCHARGED BACK TO [facility]. IV SALINE LOCK REMOVED WITHOUT INCIDENT. PATIENT DRESSED AND TRANSFERRED TO HIS OWN W/C AT 1448. WAITED FOR TRANSPORTATION; [facility] ARRIVING NOW TO TRANSPORT PT. PACKET AND D/C ORDERS SENT WITH PT.
--- NOTE | 2021-04-12 17:06 | NUR ---
Update 04/12/21: Per Dr. Denise, pt. appropriate for discharge. Discussed discharge planning with patient's daughter and staff at [facility]. Arranged for transportation at 3:30 pm via wheelchair van. Notified nurse. [facility] ordered. 04/12/21 1706: Nurse Alyssa contacted me as transportation has not picked pt. up. I have called [facility] multiple times and they have informed me that they are short staffed and they will be here soon. I have updated [facility]'s staff that the pt. will be much later than planned.
== END 2021-04-12 17:12 | disposition home or self-care (01) ==
LOC: ER 09:58 → ERHOLD 09:59 → MEDS 09:59
PROVIDERS: Emergency Medicine; Internal Medicine; Internal Medicine Gastroenterology; ADMIT Family Medicine
PROC: 0D568ZZ Destruction of Stomach, Via Natural or Artificial Opening Endoscopic (ICD-10-PCS; principal; 2021-04-08 09:30)
PROC: 0DB68ZZ Excision of Stomach, Via Natural or Artificial Opening Endoscopic (ICD-10-PCS; 2021-04-08 09:30)
DX: D62 Acute posthemorrhagic anemia (principal); K92.2 Gastrointestinal hemorrhage, unspecified; K31.819 Angiodysplasia of stomach and duodenum without bleeding; G93.41 Metabolic encephalopathy; I12.0 Hypertensive chronic kidney disease with stage 5 chronic kidney disease or end stage renal disease; E11.22 Type 2 diabetes mellitus with diabetic chronic kidney disease; N18.6 End stage renal disease; K44.9 Diaphragmatic hernia without obstruction or gangrene; E78.5 Hyperlipidemia, unspecified; E03.9 Hypothyroidism, unspecified; K21.9 Gastro-esophageal reflux disease without esophagitis; I69.351 Hemiplegia and hemiparesis following cerebral infarction affecting right dominant side; F03.90 Unspecified dementia, unspecified severity, without behavioral disturbance, psychotic disturbance, mood disturbance, and anxiety; N40.1 Benign prostatic hyperplasia with lower urinary tract symptoms; R33.8 Other retention of urine; I48.91 Unspecified atrial fibrillation; Z99.2 Dependence on renal dialysis; Z87.891 Personal history of nicotine dependence; Z79.02 Long term (current) use of antithrombotics/antiplatelets; G89.4 Chronic pain syndrome; Z20.822 Contact with and (suspected) exposure to COVID-19
CPT/HCPCS: 36415; 36430; 51702; 80048; 80053; 80069; 82272; 85014; 85018; 85025; 86850; 86900; 86901; 86923; 88305; 88342; 96372; 97110; 97129; 97163; 97166; 97530; 99285-25; A9270; C9113; G0257; G0378; J0881; J2001; J2704; J7030; J7050; P9016; U0004

== ENCOUNTER 2021-04-16 10:22 | Emergency (ER) | payer OTHER ==
[~2021-04-16] VITALS: Ht 172.7 cm; Wt 63.5 kg
[~2021-04-16 10:22] MED LIST changes: +AMLO10 PO; +ATOR20 PO; +CALCIUM ACETAT667 M2 PO; +CLOP75 PO; +COLACE100 MG PO; +EUTHYROX25 MC1 PO; +Hair, Skin & N1 EACH PO; +LEVSOD25 PO; +LOSA50 PO; +Prinivil10 MG PO; +TAMSULOSIN HCL0.4 M1 PO
[2021-04-16 12:07] LABS: BASOPHILS ABSOLUTE AUTO 0.03 K/mm3 (0.00-0.23); BASOPHILS PERCENT AUTO 0 % (0-2); EOSINOPHILS ABSOLUTE AUTO 0.14 K/mm3 (0.00-0.68); EOSINOPHILS PERCENT AUTO 2 % (0-6); Hematocrit 31.3 % (37.0-53.0); Hemoglobin 9.9 g/dL (13.5-17.5); IMMATURE GRAN ABSOLUTE AUTO 0.06 K/mm3 (0.00-0.10); IMMATURE GRAN PERCENT AUTO 1 % (0-1); LYMPHOCYTES ABSOLUTE AUTO 0.58 K/mm3 (0.84-5.20); LYMPHOCYTES PERCENT AUTO 6 % (21-46); MONOCYTES ABSOLUTE AUTO 0.74 K/mm3 (0.16-1.47); MONOCYTES PERCENT AUTO 8 % (4-13); Mean Corpuscular HGB 29.1 pg (26.0-34.0); Mean Corpuscular HGB Conc 31.6 g/dL (31.5-36.5); Mean Corpuscular Volume 92 fL (80-100); NEUTROPHILS ABSOLUTE AUTO 7.87 K/mm3 (1.96-9.15); NEUTROPHILS PERCENT AUTO 84 % (41-73); Platelet Count 260 K/mm3 (150-400); RDW Coefficient Variation 17.5 % (11.7-14.2); RDW Standard Deviation 58.4 fL (35.1-46.3); White Blood Cell Count 9.42 K/mm3 (4.00-11.30)
[2021-04-16 12:30] LABS: Albumin, Blood 3.1 g/dL (3.4-5.0); Albumin/Globulin Ratio 0.8 (0.8-1.8); Bilirubin, Total 0.4 mg/dL (0.1-1.0); Bun/Creatinine Ratio 5.5 (12.0-20.0); Calcium, Blood 8.4 mg/dL (8.5-10.1); Creatinine, Blood 2.9 mg/dL (0.60-1.20); Globulin, Blood 3.9 g/dL (2.2-4.0); Potassium, Blood 3.4 mmol/L (3.5-5.5)
== END 2021-04-16 13:22 | disposition home or self-care (01) ==
LOC: ER 10:22
PROVIDERS: Physician Assistant
DX: D64.9 Anemia, unspecified (principal); I12.0 Hypertensive chronic kidney disease with stage 5 chronic kidney disease or end stage renal disease; N18.5 Chronic kidney disease, stage 5; E11.22 Type 2 diabetes mellitus with diabetic chronic kidney disease; Z79.899 Other long term (current) drug therapy; Z88.6 Allergy status to analgesic agent; Z87.891 Personal history of nicotine dependence
CPT/HCPCS: 36415; 80053; 85025; 86850; 86900; 86901; 99283-25

== ENCOUNTER → 2021-04-30 | Outpatient (CLI) | payer OTHER ==
[2021-04-30 18:55] LABS: Source, Urine Clean Catch
[2021-04-30 20:02] LABS: Appearance, Urine Cloudy (Clear); Bilirubin, Urine Neg (Neg); Blood, Urine 4+ (Neg); Color, Urine Yellow (P-Yellow); Glucose Qualitative, Urine 2+ (Neg); Ketones, Urine Neg (Neg); Leukocyte Esterase, Urine 3+ (Neg); Nitrite, Urine Neg (Neg); Protein, Urine 3+ (Neg); Specific Gravity, Urine 1.015 (1.003-1.022); Urobilinogen, Urine NORM (Normal)
[2021-04-30 20:08] LABS: White Blood Cells, Urine TNTC /hpf (0-5)
[2021-04-30 20:09] LABS: Amorphous Light (0-Heavy); Bacteria Many /hpf; Red Blood Cells, Urine 0-2 /hpf (0-2); Squamous Epithelial Cells Not Seen /hpf (Few)
== END | disposition home or self-care (01) ==
LOC: LAB SHORT 11:45
PROVIDERS: Physician Assistant
DX: N39.0 Urinary tract infection, site not specified (principal)
CPT/HCPCS: 81001

== ENCOUNTER 2021-06-15 15:50 | Inpatient (IN) | payer OTHER ==
[~2021-06-15] VITALS: Ht 162.6 cm; Wt 72.6 kg
[2021-06-15] MEDS ORDERED: THERA-D2000 UNIT PO (16:22)
[2021-06-15 16:33] LABS: BASOPHILS ABSOLUTE AUTO 0.01 K/mm3 (0.00-0.23); BASOPHILS PERCENT AUTO 0 % (0-2); EOSINOPHILS ABSOLUTE AUTO 0.07 K/mm3 (0.00-0.68); EOSINOPHILS PERCENT AUTO 2 % (0-6); Hemoglobin 7.2 g/dL (13.5-17.5); IMMATURE GRAN ABSOLUTE AUTO 0.03 K/mm3 (0.00-0.10); IMMATURE GRAN PERCENT AUTO 1 % (0-1); LYMPHOCYTES ABSOLUTE AUTO 0.64 K/mm3 (0.84-5.20); LYMPHOCYTES PERCENT AUTO 14 % (21-46); MONOCYTES ABSOLUTE AUTO 0.31 K/mm3 (0.16-1.47); MONOCYTES PERCENT AUTO 7 % (4-13); Mean Corpuscular HGB 28.9 pg (26.0-34.0); Mean Corpuscular HGB Conc 31.3 g/dL (31.5-36.5); Mean Corpuscular Volume 92 fL (80-100); Mean Platelet Volume 10.5 fL (9.1-12.4); NEUTROPHILS PERCENT AUTO 77 % (41-73); Platelet Count 227 K/mm3 (150-400); RDW Coefficient Variation 16.9 % (11.7-14.2); RDW Standard Deviation 57.3 fL (35.1-46.3); Red Blood Cell Count 2.49 M/mm3 (4.30-5.90); White Blood Cell Count 4.66 K/mm3 (4.00-11.30)
[2021-06-15 17:52] LABS: Albumin, Blood 2.9 g/dL (3.4-5.0); Albumin/Globulin Ratio 0.7 (0.8-1.8); Bilirubin, Total 0.3 mg/dL (0.1-1.0); Bun/Creatinine Ratio 7.6 (12.0-20.0); Calcium, Blood 8.4 mg/dL (8.5-10.1); Creatinine, Blood 3.29 mg/dL (0.60-1.20); Globulin, Blood 3.9 g/dL (2.2-4.0); Potassium, Blood 3.7 mmol/L (3.5-5.5); Total Protein, Blood 6.8 g/dL (6.4-8.2)
[2021-06-15 23:50] LABS: Hematocrit 21.2 % (37.0-53.0); Hemoglobin 6.5 g/dL (13.5-17.5)
[2021-06-16 06:17] LABS: BASOPHILS ABSOLUTE AUTO 0.01 K/mm3 (0.00-0.23); BASOPHILS PERCENT AUTO 0 % (0-2); EOSINOPHILS ABSOLUTE AUTO 0.07 K/mm3 (0.00-0.68); EOSINOPHILS PERCENT AUTO 2 % (0-6); Hematocrit 24.6 % (37.0-53.0); Hemoglobin 7.9 g/dL (13.5-17.5); IMMATURE GRAN ABSOLUTE AUTO 0.01 K/mm3 (0.00-0.10); IMMATURE GRAN PERCENT AUTO 0 % (0-1); LYMPHOCYTES ABSOLUTE AUTO 0.86 K/mm3 (0.84-5.20); LYMPHOCYTES PERCENT AUTO 18 % (21-46); MONOCYTES ABSOLUTE AUTO 0.59 K/mm3 (0.16-1.47); MONOCYTES PERCENT AUTO 12 % (4-13); Mean Corpuscular HGB Conc 32.1 g/dL (31.5-36.5); Mean Corpuscular Volume 90 fL (80-100); Mean Platelet Volume 10.1 fL (9.1-12.4); NEUTROPHILS ABSOLUTE AUTO 3.28 K/mm3 (1.96-9.15); NEUTROPHILS PERCENT AUTO 68 % (41-73); Platelet Count 223 K/mm3 (150-400); RDW Coefficient Variation 17.5 % (11.7-14.2); RDW Standard Deviation 58.4 fL (35.1-46.3); Red Blood Cell Count 2.72 M/mm3 (4.30-5.90); White Blood Cell Count 4.82 K/mm3 (4.00-11.30)
[2021-06-16 06:42] LABS: Albumin, Blood 2.8 g/dL (3.4-5.0); Albumin/Globulin Ratio 0.8 (0.8-1.8); Bilirubin, Total 0.4 mg/dL (0.1-1.0); Bun/Creatinine Ratio 6.4 (12.0-20.0); Calcium, Blood 8.2 mg/dL (8.5-10.1); Creatinine, Blood 5.12 mg/dL (0.60-1.20); Globulin, Blood 3.7 g/dL (2.2-4.0); Potassium, Blood 4.2 mmol/L (3.5-5.5); Total Protein, Blood 6.5 g/dL (6.4-8.2)
[2021-06-16 07:49] LABS: SARS-Cov-2 (COVID-19) PCR, MMC POSITIVE (NEGATIVE)
[2021-06-16 13:01] LABS: Hematocrit 25.2 % (37.0-53.0); Hemoglobin 7.9 g/dL (13.5-17.5)
--- NOTE | 2021-06-16 16:16 | NUR ---
PT AOX4 AND COOPERATIVE OF CARE. PT IS ON BEDREST AT THIS RA AND MAINTAINING LOW 90s. NO DISTRESS NOTED. BED ALARM IN PLACE AND CALL LIGHT WITHIN REACH. NO DISTRESS NOTED AT THIS TIME.
--- NOTE | 2021-06-16 16:24 | NUR ---
PT AOX1 AND ON BED REST. PT RESTING QUIETLY AT THIS TIME. NO DISTRESS NOTED. BEDALARM IN PLACE. PT DOES NOT ANWER QUESTIONS, BUT IS PLEASANT TO CARE FOR. MAINTAINING ON RA LOW 90s.
[2021-06-16 17:56] LABS: Hematocrit 23.6 % (37.0-53.0); Hemoglobin 7.6 g/dL (13.5-17.5)
--- NOTE | 2021-06-17 05:07 | NUR ---
PHYSICIAN COMMUNICATION CONTACTED FOAM CASTER PHYSICIAN, DR SOTOMAYOR, TO NOTIFY HIM THAT THE PATIENT HAD POSITIVE BLOOD CULTURES OF GRAM + COCCI IN CHAINS AND WAS ON 1 GRAM IV ROCEPHIN DAILY. NO ORDERS GIVEN.
[2021-06-17 06:22] LABS: Albumin, Blood 2.3 g/dL (3.4-5.0); Anion Gap 8 mmol/L (6-16); Blood Urea Nitrogen 38 mg/dL (8-24); Bun/Creatinine Ratio 6.5 (12.0-20.0); CO2, Blood 23 mmol/L (21-32); Calcium, Blood 7.1 mg/dL (8.5-10.1); Chloride, Blood 103 mmol/L (98-108); Creatinine, Blood 5.85 mg/dL (0.60-1.20); Glomerular Filtration Rate 9 (60-); Glucose, Blood 79 mg/dL (70-99); Phosphorus, Blood 3.1 mg/dL (2.5-4.9); Potassium, Blood 4.1 mmol/L (3.5-5.5); Sodium, Blood 134 mmol/L (136-145)
[2021-06-17 06:51] LABS: BASOPHILS ABSOLUTE AUTO 0.01 K/mm3 (0.00-0.23); BASOPHILS PERCENT AUTO 0 % (0-2); EOSINOPHILS ABSOLUTE AUTO 0.03 K/mm3 (0.00-0.68); EOSINOPHILS PERCENT AUTO 0 % (0-6); Hematocrit 24.6 % (37.0-53.0); Hemoglobin 7.6 g/dL (13.5-17.5); IMMATURE GRAN ABSOLUTE AUTO 0.05 K/mm3 (0.00-0.10); IMMATURE GRAN PERCENT AUTO 1 % (0-1); LYMPHOCYTES ABSOLUTE AUTO 0.76 K/mm3 (0.84-5.20); LYMPHOCYTES PERCENT AUTO 10 % (21-46); MONOCYTES ABSOLUTE AUTO 0.61 K/mm3 (0.16-1.47); MONOCYTES PERCENT AUTO 8 % (4-13); Mean Corpuscular HGB 28.1 pg (26.0-34.0); Mean Corpuscular HGB Conc 30.9 g/dL (31.5-36.5); Mean Corpuscular Volume 91 fL (80-100); Mean Platelet Volume 10.3 fL (9.1-12.4); NEUTROPHILS ABSOLUTE AUTO 6.14 K/mm3 (1.96-9.15); NEUTROPHILS PERCENT AUTO 81 % (41-73); Platelet Count 217 K/mm3 (150-400); RDW Coefficient Variation 17.2 % (11.7-14.2); RDW Standard Deviation 57.1 fL (35.1-46.3)
--- NOTE | 2021-06-17 07:31 | NUR ---
SHIFT SUMMARY PATIENT ALERT AND ORIENTED X2. HAD NO COMPLAINTS OF PAIN OR SHORTNESS OF BREATH. IV PATENT AND INFUSING. BED IN LOWEST POSITION WITH WHEELS LOCKED AND ALARM ON. CALL LIGHT WITHIN REACH. REPORT GIVEN TO ONCOMING RN.
--- NOTE | 2021-06-17 07:55 | NUR ---
BROUGHT TO [facility] WITH CHART ADMISSION TO UNIT STARTED
--- NOTE | 2021-06-17 08:14 | NUR ---
06/17/21 0814 Clifford Mack See Anesthesia record DR FRAUSTO. Bite Block Placed. 3-LEAD EKG REVIEWED WITH PHYSICIAN PRIOR TO START OF PROCEDURE. History, Chart, Medications and Allergies reviewed before start of procedure. MONITOR INTACT WITH CONTINUOUS PULSE OXIMETRY AND INTERMITTENT BP. O2 VIA N/C INTACT THROUGHOUT SEDATION/PROCEDURE.
--- NOTE | 2021-06-17 17:39 | NUR ---
PT AOX1 AND HAS BEEN COOPEATIVE OF CARE. PT NEEDS TO BE FED AND IS INCONTENT. PT IS A TWO PERSON TURN FOR CHANGES. PT RESTING IN BED WITH BED ALARM IN PLACE WILL CONTINUE TO MONITOR.
[2021-06-18 04:53] LABS: BASOPHILS ABSOLUTE AUTO 0.01 K/mm3 (0.00-0.23); BASOPHILS PERCENT AUTO 0 % (0-2); EOSINOPHILS ABSOLUTE AUTO 0.14 K/mm3 (0.00-0.68); EOSINOPHILS PERCENT AUTO 3 % (0-6); Hematocrit 25.2 % (37.0-53.0); Hemoglobin 7.8 g/dL (13.5-17.5); IMMATURE GRAN ABSOLUTE AUTO 0.02 K/mm3 (0.00-0.10); IMMATURE GRAN PERCENT AUTO 0 % (0-1); LYMPHOCYTES ABSOLUTE AUTO 1.14 K/mm3 (0.84-5.20); LYMPHOCYTES PERCENT AUTO 24 % (21-46); MONOCYTES ABSOLUTE AUTO 0.58 K/mm3 (0.16-1.47); MONOCYTES PERCENT AUTO 12 % (4-13); Mean Corpuscular Volume 90 fL (80-100); Mean Platelet Volume 10.6 fL (9.1-12.4); NEUTROPHILS PERCENT AUTO 60 % (41-73); Platelet Count 221 K/mm3 (150-400); RDW Coefficient Variation 16.5 % (11.7-14.2); RDW Standard Deviation 54.4 fL (35.1-46.3); Red Blood Cell Count 2.79 M/mm3 (4.30-5.90); White Blood Cell Count 4.69 K/mm3 (4.00-11.30)
[2021-06-18 05:15] LABS: Albumin, Blood 2.6 g/dL (3.4-5.0); Albumin/Globulin Ratio 0.7 (0.8-1.8); Bilirubin, Total 0.4 mg/dL (0.1-1.0); Bun/Creatinine Ratio 5.9 (12.0-20.0); Calcium, Blood 7.4 mg/dL (8.5-10.1); Creatinine, Blood 6.97 mg/dL (0.60-1.20); Globulin, Blood 3.6 g/dL (2.2-4.0); Magnesium, Blood 2.6 mg/dL (1.6-2.4); Potassium, Blood 4.2 mmol/L (3.5-5.5); Total Protein, Blood 6.2 g/dL (6.4-8.2)
--- NOTE | 2021-06-18 06:49 | NUR ---
SHIFT SUMMARY PATIENT ALERT AND ORIENTED TO SELF ONLY. NO ACUTE ISSUES NOTED OVERNIGHT. CALL LIGHT WITHIN REACH. REPORT GIVEN TO ONCOMING RN.
--- NOTE | 2021-06-18 20:00 | NUR ---
SHIFT SUMMARY: PT A/O TO SELF. MISSY DIALYSIS TODAY, SLEPT MOST OF THE DAY BUT WOKE UP EASILY FOR MEDICATIONS AND TO EAT. PT INCONTINENT AND HAD SMALL DARK BROWN BM THIS EVENING. PT SATURATED ATTENDS WITH URINE. NO ACUTE CONCERNS THIS SHIFT.
--- NOTE | 2021-06-19 03:54 | NUR ---
FUNCTIONAL TESTER SUMMARY HAS BEEN RESTING QUIETLY WITH FEW INTERRUPTIONS SINCE HS. NOTE CONTRACTURES OF HANDS AND FEET. DENIED PAIN WHEN ASKED. MED TELE SINUS RUI IN HIGH 40'S. ASYMPTOMATIC. CALL LIGHT IN REACH. ISOLATION PRECAUTIONS MAINTAINED. MONITORING HGB. NO NOTED S/S BLEEDING.
[2021-06-19 08:20] LABS: BASOPHILS ABSOLUTE AUTO 0.01 K/mm3 (0.00-0.23); BASOPHILS PERCENT AUTO 0 % (0-2); EOSINOPHILS ABSOLUTE AUTO 0.28 K/mm3 (0.00-0.68); EOSINOPHILS PERCENT AUTO 5 % (0-6); Hematocrit 25.6 % (37.0-53.0); IMMATURE GRAN ABSOLUTE AUTO 0.04 K/mm3 (0.00-0.10); IMMATURE GRAN PERCENT AUTO 1 % (0-1); LYMPHOCYTES PERCENT AUTO 25 % (21-46); MONOCYTES ABSOLUTE AUTO 0.71 K/mm3 (0.16-1.47); MONOCYTES PERCENT AUTO 14 % (4-13); Mean Corpuscular HGB Conc 31.3 g/dL (31.5-36.5); Mean Corpuscular Volume 90 fL (80-100); Mean Platelet Volume 10.5 fL (9.1-12.4); NEUTROPHILS ABSOLUTE AUTO 2.89 K/mm3 (1.96-9.15); NEUTROPHILS PERCENT AUTO 55 % (41-73); Platelet Count 227 K/mm3 (150-400); RDW Coefficient Variation 16.4 % (11.7-14.2); RDW Standard Deviation 54.3 fL (35.1-46.3); Red Blood Cell Count 2.86 M/mm3 (4.30-5.90); White Blood Cell Count 5.23 K/mm3 (4.00-11.30)
--- NOTE | 2021-06-19 16:03 | NUR ---
06/19/21- per Dr. Michel's note from yesterday, he spoke with granddaughter and she would like to discuss hospice with pt's daughter. Pt is in favor of hospice and he wished to purse supportive care. Family would like to use [facility] hospice and go back to [facility]. Spoke with Granddaughter and they would like for time so pt's can come to terms that once he is on hospice care, he will not survive too much longer. Granddaughter states that she will put him on hospice next week. Plan is for pt to go to COVID unit at [facility] once approved by facility and the state. If pt improves enough to return to [facility] will transfer him there. -maxim
--- NOTE | 2021-06-19 18:25 | NUR ---
SHIFT SUMMARY: PT A/O TO SELF, PLEAS AND COOPERATIVE. PT DID NOT HAVE DIALYSIS TODAY. PT IS EATING WELL AND DRINKING FLUIDS WELL. PT HAS HAD NO ACUTE CONCERNS AT THIS TIME. PLAN IS TO POSSIBLY DC ON COMFORT MEASURES BACK TO [facility].
--- NOTE | 2021-06-20 04:43 | NUR ---
MARINE STEAM FITTER SUMMARY ADMITTED FOR SEVERE ANEMIA. PT IS A DNR. PT HAD AN EPISODE OF CHANGED PSYCHOSOCIAL STATUS LAST NIGHT DURING ASSESSMENT AND REPORTS MISSING HIS BUT SAYS THAT HE IS ACTUALLY "". PT HAD ONE EPISODE OF DARK AND TARRY STOOL LAST NIGHT. ISOLATION MAINTAINED.
--- NOTE | 2021-06-20 06:00 | NUR ---
PT REFUSING TO WAKE UP FOR THIS RN. PT MAKES EYE CONTACT AND WHEN ASKED TO TAKE HIS MORNING MEDICATIONS, CLOSES EYES AGAIN AND REFUSES TO OPEN THEM. AM MEDICATIONS DELAYED AT THIS TIME.
[2021-06-20 08:27] LABS: BASOPHILS ABSOLUTE AUTO 0.02 K/mm3 (0.00-0.23); BASOPHILS PERCENT AUTO 0 % (0-2); EOSINOPHILS ABSOLUTE AUTO 0.27 K/mm3 (0.00-0.68); EOSINOPHILS PERCENT AUTO 4 % (0-6); Hematocrit 26.3 % (37.0-53.0); Hemoglobin 8.3 g/dL (13.5-17.5); IMMATURE GRAN ABSOLUTE AUTO 0.05 K/mm3 (0.00-0.10); IMMATURE GRAN PERCENT AUTO 1 % (0-1); LYMPHOCYTES ABSOLUTE AUTO 1.99 K/mm3 (0.84-5.20); LYMPHOCYTES PERCENT AUTO 31 % (21-46); MONOCYTES ABSOLUTE AUTO 0.57 K/mm3 (0.16-1.47); MONOCYTES PERCENT AUTO 9 % (4-13); Mean Corpuscular HGB 28.1 pg (26.0-34.0); Mean Corpuscular HGB Conc 31.6 g/dL (31.5-36.5); Mean Corpuscular Volume 89 fL (80-100); Mean Platelet Volume 10.3 fL (9.1-12.4); NEUTROPHILS ABSOLUTE AUTO 3.56 K/mm3 (1.96-9.15); NEUTROPHILS PERCENT AUTO 55 % (41-73); Platelet Count 260 K/mm3 (150-400); RDW Coefficient Variation 15.9 % (11.7-14.2); RDW Standard Deviation 52.3 fL (35.1-46.3); Red Blood Cell Count 2.95 M/mm3 (4.30-5.90); White Blood Cell Count 6.46 K/mm3 (4.00-11.30)
[2021-06-20 09:34] LABS: Hemoglobin 7.5 g/dL (13.5-17.5)
[2021-06-20 09:55] LABS: Albumin, Blood 2.7 g/dL (3.4-5.0); Anion Gap 8 mmol/L (6-16); Blood Urea Nitrogen 33 mg/dL (8-24); Bun/Creatinine Ratio 5.3 (12.0-20.0); CO2, Blood 27 mmol/L (21-32); Calcium, Blood 7.8 mg/dL (8.5-10.1); Chloride, Blood 103 mmol/L (98-108); Creatinine, Blood 6.18 mg/dL (0.60-1.20); Glomerular Filtration Rate 9 (60-); Glucose, Blood 155 mg/dL (70-99); Phosphorus, Blood 2.3 mg/dL (2.5-4.9); Potassium, Blood 3.1 mmol/L (3.5-5.5); Sodium, Blood 138 mmol/L (136-145)
[2021-06-20] MEDS ORDERED: FERSU300 PO (14:41)
[2021-06-20] MEDS ORDERED: ACET325 PO (14:41)
[2021-06-20] MEDS ORDERED: MORP20L SL (14:42)
--- NOTE | 2021-06-20 15:05 | NUR ---
06/20/21- Received call from floor nurse stating that the pt needs gurney transport. Called [facility] and they state that pt has always been wheelchair transport and they need an indication for wheelchair. Reviewed a couple diagnoses with them. Transport was pushed out until 430. Called floor nurse back and updated her on discharge. -Marcie has approved the pt to go to the COVID unit at [facility]. Transportation has been set up at 3pm today. Called and notified his daughter of discharge and apple picking supervisor time. Asked Dr. Michel to sign hospice orders so I can send them with the pt when he leaves later. -cristina
--- NOTE | 2021-06-20 18:33 | NUR ---
Received call from TANG Ford regarding concerns from [facility] that they were unaware pt. was going to [facility]. I am not familiar with patient's discharge planning. Contacted clinical employee development manager at [facility] who supported [facility] in that they can receive patient back based on current guidlines. Contacted Sacha director admissions at [facility] and he requested that I speak with TANG Malcolm. Per discussion with Yun, they were unaware pt. was going to [facility] and they would request that he return to their facility. The facility has a COVID house in place meeting all the requirements to accept pt. back to facility. They are willing to take pt. regardless of hospice involvement. They will send pt. for dialysis treatments until family has made hospice decision. Updated Dr. Michel regarding discharge updates. He agreed that [facility] would be the best place for pt. if family agreeable. Contacted granddaughter Linda. She was very happy to hear that pt. could return to [facility] as she was under the impression he could not. Discussed hospice with Linda. She states that she is certain they want to go with hospice but have been giving patient's the time to adjust to the idea. Encouraged Linda to move forward with setting up an intake time with [facility] to at least get patient on their list. She was agreeable to this and asked that we contact her tomorrow after speaking [facility] to check availability. Unfortunately, transportation was cancelled onsite at hospital due to confusion. [facility] unable to accept pt. scottie. Agreeable to accepting tomorrow. Plan to fax D/C paperwork. Yun will be in tomorrow morning to arrange for accepting patient back, likely early afternoon. Dr. Michel updated.
--- NOTE | 2021-06-20 19:39 | NUR ---
SHIFT SUMMARY PT A/O X2 AND VERY TEARFUL THIS SHIFT ABOUT HIS . DIALYSIS TODAY. NO TARRY STOOLS NOTED. WAS SUPPOSED TO DC TO [facility] BUT PT IS A RESIDENT AT [facility] SO IT WAS DECIDED THAT THE PATIENT IS TO DC TO [facility] INSTEAD. [facility] CAN KEEP THE PATIENT QUARANTINED FOR COVID AND PROVIDE HOSPICE CARE. NO COVID SYMPTOMS NOTED. VSS. WILL REPORT TO ONCOMING RN.
--- NOTE | 2021-06-21 06:07 | NUR ---
SHIFT SUMMARY PATIENT ALERT AND ORIENTED TO SELF. NO COMPLAINTS OF PAIN OR SHORTNESS OF BREATH. NO ACUTE ISSUES NOTED. CALL LIGHT WITHIN REACH. REPORT GIVEN TO ONCOMING RN.
[2021-06-21 08:22] LABS: BASOPHILS PERCENT AUTO 0 % (0-2); EOSINOPHILS ABSOLUTE AUTO 0.19 K/mm3 (0.00-0.68); EOSINOPHILS PERCENT AUTO 3 % (0-6); Hematocrit 23.8 % (37.0-53.0); Hemoglobin 7.5 g/dL (13.5-17.5); IMMATURE GRAN ABSOLUTE AUTO 0.06 K/mm3 (0.00-0.10); IMMATURE GRAN PERCENT AUTO 1 % (0-1); LYMPHOCYTES ABSOLUTE AUTO 1.12 K/mm3 (0.84-5.20); LYMPHOCYTES PERCENT AUTO 18 % (21-46); MONOCYTES ABSOLUTE AUTO 0.68 K/mm3 (0.16-1.47); MONOCYTES PERCENT AUTO 11 % (4-13); Mean Corpuscular HGB Conc 31.5 g/dL (31.5-36.5); Mean Corpuscular Volume 89 fL (80-100); Mean Platelet Volume 10.6 fL (9.1-12.4); NEUTROPHILS ABSOLUTE AUTO 4.32 K/mm3 (1.96-9.15); NEUTROPHILS PERCENT AUTO 68 % (41-73); Platelet Count 238 K/mm3 (150-400); RDW Coefficient Variation 15.9 % (11.7-14.2); RDW Standard Deviation 51.8 fL (35.1-46.3); Red Blood Cell Count 2.68 M/mm3 (4.30-5.90); White Blood Cell Count 6.37 K/mm3 (4.00-11.30)
--- NOTE | 2021-06-21 08:28 | NUR ---
Update 06/21/21: Pt. has been accepted to return to [facility] per Yun RN at facility. Plan to have him return to house at facility specifically dedicated to COVID positive patients. Faxed D/C paperwork to Yun at facility this am. She will be in around 9 am and plans to set up medications and prepare for pt. to return. Plan to schedule transportation as soon as I hear back from Yun that facility is ready. Hospice has been decided on by family. Requesting [facility]. They plan to schedule intake for pt. but would like a few more days prior to the intake date. Patient's is having a difficult processing the idea of discontinuing dialysis. Family wants to give her a few more days to adjust prior to D/C of dialysis. Nursing staff at [facility] are aware of the circumstances and agree to assist family however needed moving forward.
--- NOTE | 2021-06-21 15:43 | NUR ---
Update 06/21/21: Pt. was accepted back to [facility]. Valencia in care management assisted with scheduling transport with a time of 1500. Updated Yun RN with [facility] of time. I advised her that with the EMS system being so busy currently, a delay is possible. Updated nurse caring for pt. on the floor as well. Packet already prepared for pt. by director career services Patricia and in lockbox outside of room. Family has agreed on hospice care and has intake scheduled for Friday next week with [facility]. Confirmed [facility] has received all required paperwork. Family was notified by [facility] that pt. was coming back there this afternoon per Yun at facility. No further needs at this time. Daughter Linda has my contact info and will call if any additional needs or concerns.
--- NOTE | 2021-06-21 19:12 | NUR ---
SHIFT SUMMARY PT ALERT TO SELF BUT PLEASANT AND COOPERATIVE WITH CARE. SLEPT FOR THE MAJORITY OF THE DAY. FEEDER. HAD ONE SOMEWHAT DARK BOWEL MOVEMENT. BECOMES TEARFUL WHEN AWAKENED AND MISSES HIS . DC'D BACK HOME TO [facility]. TRANSPORTED BY EMS. VSS.
== END 2021-06-21 18:15 | disposition hospice, home (50) | DRG 377 ==
LOC: ER 15:50 → MEDS 15:51 → ENPENDDIS 06-20 18:17 → MEDS 06-21 18:15
PROVIDERS: Family Medicine; Internal Medicine; Internal Medicine Gastroenterology; Physician Assistant; Student in an Organized Health Care Education/Training Program; ADMIT Internal Medicine
PROC: 30233N1 Transfusion of Nonautologous Red Blood Cells into Peripheral Vein, Percutaneous Approach (ICD-10-PCS; 2021-06-15)
PROC: 8E0ZXY6 Isolation (ICD-10-PCS; principal; 2021-06-16)
PROC: 5A1D70Z Performance of Urinary Filtration, Intermittent, Less than 6 Hours Per Day (ICD-10-PCS; 2021-06-16)
PROC: 0DJ08ZZ Inspection of Upper Intestinal Tract, Via Natural or Artificial Opening Endoscopic (ICD-10-PCS; 2021-06-18)
DX: K25.4 Chronic or unspecified gastric ulcer with hemorrhage (principal); U07.1 COVID-19; N18.6 End stage renal disease; J12.82 Pneumonia due to coronavirus disease 2019; I12.0 Hypertensive chronic kidney disease with stage 5 chronic kidney disease or end stage renal disease; G93.40 Encephalopathy, unspecified; I69.351 Hemiplegia and hemiparesis following cerebral infarction affecting right dominant side; N17.9 Acute kidney failure, unspecified; Z51.5 Encounter for palliative care; Z66 Do not resuscitate; N40.0 Benign prostatic hyperplasia without lower urinary tract symptoms; E78.5 Hyperlipidemia, unspecified; E03.9 Hypothyroidism, unspecified; F03.90 Unspecified dementia, unspecified severity, without behavioral disturbance, psychotic disturbance, mood disturbance, and anxiety; D63.1 Anemia in chronic kidney disease; I48.91 Unspecified atrial fibrillation; K44.9 Diaphragmatic hernia without obstruction or gangrene; H91.90 Unspecified hearing loss, unspecified ear; E78.00 Pure hypercholesterolemia, unspecified; G89.29 Other chronic pain; R33.8 Other retention of urine; E87.6 Hypokalemia; K21.9 Gastro-esophageal reflux disease without esophagitis; R00.1 Bradycardia, unspecified; E11.22 Type 2 diabetes mellitus with diabetic chronic kidney disease; Z98.890 Other specified postprocedural states; Z88.6 Allergy status to analgesic agent; Z91.15 Patient's noncompliance with renal dialysis; Z90.79 Acquired absence of other genital organ(s); Z98.49 Cataract extraction status, unspecified eye; Z99.2 Dependence on renal dialysis; Z86.14 Personal history of Methicillin resistant Staphylococcus aureus infection; Z87.891 Personal history of nicotine dependence; Z95.828 Presence of other vascular implants and grafts; Z74.01 Bed confinement status
CPT/HCPCS: 36415; 36430; 70450; 71045; 80053; 80069; 82140; 82272; 82947; 83605; 83735; 84145; 84484; 85014; 85018; 85025; 86850; 86900; 86901; 86923; 87040; 87077; 87186; 93005; 93010; 96365; 96366; 96375; 96376; 99285-25; A9270; C9113; G0378; J0696; J0881; J2704; J3010; J7030; P9016; Q0243; U0004